=== PATIENT | male | born 1985 | race Caucasian/White ===

== ENCOUNTER 2022-07-15 22:24 | Inpatient (IN) ==
[2022-07-15 22:49] LABS: Basophils # (auto) 0.04 K/uL (0-0.2); Basophils % (auto) 0.2 %; Hemoglobin 14.9 g/dl (14.0-18.0); Immature Granulocytes # (auto) 0.08 K/uL (0.00-0.02); Immature Granulocytes % (auto) 0.5 %; Lymphocytes # (auto) 1.17 K/uL (1.2-3.4); Lymphocytes % (auto) 7.1 %; Mean Corpuscular Hemoglobin 30.8 pg (25.0-34.0); Mean Corpuscular Hgb Conc 34.7 g/dL (32.0-36.0); Mean Platelet Volume 9.2 fL (9.4-12.4); Monocytes % (auto) 6.1 %; Neutrophils # (auto) 14.09 K/uL (1.4-6.5); Neutrophils % (auto) 86.1 %; Platelet Count 248 K/uL (130-400); RDW Coefficient of Variation 12.9 % (11.5-14.5); RDW Standard Deviation 42.5 fL (36.4-46.3); Red Blood Count 4.83 M/uL (4.63-6.08); White Blood Count 16.38 K/ul (4.8-10.8)
[2022-07-15 23:09] LABS: Albumin Globulin Ratio 1.4 (0.9-2); Albumin Level 4.7 gm/dl (3.4-5.0); BUN Creatinine Ratio 12.3 (10-20); Bilirubin,Total 2.2 mg/dl (0.2-1.0); Creatinine Clr Calc Pharmacy 143.8 ml/min; Est GFR (African American) 130.7 ml/min; Est GFR (Non-African American) 112.7 ml/min; Globulin 3.4 gm/dl (2.5-4.0); Potassium 4.1 mmol/L (3.5-5.1); Total Protein 8.1 gm/dl (6.0-8.3)
[2022-07-15 23:24] LABS: Appearance Urine Turbid (Clear); Bacteria Urine Automated Negative (Negative); Blood Urine 2+ (Negative); Color Urine Orange; Glucose Urine UA Negative (Negative); Ketones Urine Trace (Negative); Leukocyte Esterase Urine Negative (Negative); Nitrite Urine Negative (Negative); Protein Urine 1+ (Negative); Specific Gravity Urine 1.035 (1.000-1.030); Urobilinogen Urine Negative (Negative); pH Urine 5.5 (4.5-7.5)
[2022-07-15 23:25] LABS: Bilirubin Urine 1+ (Negative)
[2022-07-15] MEDS ORDERED: ONDANSETRON INJ 2 MG/ML 2 ML VIAL IV STA (23:29)
[2022-07-15] MEDS ORDERED: HYDROmorphone INJ 1 MG/ML SYRINGE IV STA (23:29)
[2022-07-15] MEDS ORDERED: SODIUM CHLORIDE 0.9% 1000ML 1,000 ML IV ONE (23:30)
[2022-07-15 23:34] LABS: Amorphous Sediment Urine Present (None Prsent)
--- NOTE | 2022-07-15 23:35 | Emergency Department Note ---
Impression & Plan Acute cholecystitis Admit to the [facility]ist ED Provider Note NAME: SHELLY ANDRADE AGE: 36 SEX: M ARRIVES VIA: Walk-In INFORMANT: Patient ED PROVIDER(S): Shruthi Noble DO CHIEF COMPLAINT: Right upper quadrant pain PLAN: Disposition: Admit to the [facility] Condition: Stable MEDICAL DECISION MAKING: This is a 36-year-old male patient who presents to the emergency department with severe right upper quadrant abdominal pain after eating hash brown this morning. The patient had a similar episode 1 week ago after eating [employer]. Patient underwent right upper quadrant ultrasound and CT scan of the abdomen/pelvis which confirms acute cholecystitis. Patient was jaundiced on physical exam and had a total bilirubin of 2.2. I discussed the case with Dr. Barrera from general surgery. He recommended admission to hospitalist service with consultation to GI as well. Patient's pain and nausea was controlled with IV Dilaudid and Zofran. Triage Nursing notes reviewed and agree with them. Vital Signs: reviewed and remarkable for hypertension Differential diagnosis: Cholecystitis, pancreatitis, hepatitis, gastritis, ulcerative disease ER treatment provided: IV normal saline bolus IV Dilaudid IV Zofran Diagnostics interpreted by me: Laboratory studies: See below Imaging studies: As per stat rad Ultrasound gallbladder: The gallbladder demonstrates no wall thickening or per icholecystic fluid. No signs concerning for acute cholecystitis. There is some sludge within the gallbladder. There are some multiple small echogenic foci in of the gallbladder fundus which do not appear to move and may reflect small cholesterol polyps, follow-up ultrasound is recommended. There is a 3.6 cm simple appearing right renal cyst there is diffuse hepatic steatosis CT abdomen pelvis with contrast: Acute cholecystitis. Distended gallbladder with pericholecystic edema. No radiopaque stones. No intrahepatic or extrahepatic biliary ductal dilatation. 6 mm rounded visual lung nodule on the right. These nodules are typically benign. 3 cm simple right renal cyst HPI: 36/M arrives for evaluation of right upper quadrant pain. Patient explains that he ate a hash brown this morning and developed severe right upper quadrant abdominal pain, nausea and vomiting. He explains that his abdomen feels rockhard. A very similar episode happened last week after eating [employer]aco [employer]. Thing that would help was a hot shower and falling asleep. Patient states that his stomach has not felt right over the past 2 months. He thought that he may have a gluten allergy. ROS: See above HPI for pertinent positives & negatives. A total of 10 systems reviewed and were otherwise negative. PAST MEDICAL HISTORY:See Below PAST SURGICAL HISTORY:See Below FAMILY HISTORY:See Below SOCIAL HISTORY:See Below HOME MEDICATIONS:See list ALLERGIES:None VITALS:See Below PHYSICAL EXAMINATION: HEENT: Head - normocephalic and atraumatic. Pupils are equal, round, and reactive to light. Extraocular eye muscles are intact, and sclera are anicteric. Nose - moist nasal mucosa without discharge. Mouth - moist buccal mucosa. Oropharynx is nonerythematous and there is no tonsillar exudate or edema noted. Neck: Supple; no cervical lymphadenopathy or nuchal rigidity Heart: Regular rate and rhythm. There is a normal S1 and S2 with no murmurs, clicks, or gallops appreciated. Lungs: Clear to auscultation bilaterally with no wheezes, rales, or rhonchi. Abdomen: Distended and exquisitely tender to palpation in the right upper quadrant of the abdomen. The patient has guarding. There is no rebound or rigidity. There are no palpable pulsatile masses or hepatosplenomegaly. Extremities: No evidence of cyanosis, clubbing, or edema. There are easily palpable peripheral pulses. Skin: Jaundice, pale, warm and dry with good turgor and no rashes. ED COURSE: Times/Reassessments: 2320: The patient was evaluated in room A-3. A complete history and physical was performed. An IV lock was initiated and labs are drawn as above. Patient was bolused with a liter of normal saline solution. He was given a milligram of IV Dilaudid and 4 mg of IV Zofran. The patient will go for ultrasound of the right upper quadrant of the abdomen. Upon returning from radiology, the patient complained of persistent nausea and was given a second dose of IV Zofran. He will go for CT scan of the abdomen/pelvis. He was bolused with IV normal saline solution and kept NPO. Upon returning from CT scan, the patient describes the pain is returning and was given a normal dose of IV Dilaudid. Shruthi Noble DO Past Med/Surg History Medical History (Updated 07/16/22 @ 07:11 by Shruthi Noble DO) No chronic diseases present Surgical History No significant past surgical history Social History Smoking Status: Never smoker Preferred Language: Chadian Feels Safe at Home: Yes Allergies Allergies Allergy/AdvReac Type Severity Reaction Status Date / Time CUT GRASS Allergy Intermediate CONGESTION Uncoded 07/15/22 23:22 Home Meds Home Medications Medication Instructions Recorded Confirmed multivitamin 1 tab PO DAILY 04/06/20 07/15/22 fexofenadine 60 mg-pseudoephedrine 1 tab PO DAILY 07/15/22 07/15/22 ER 120 mg tablet,ext.release,12 hr (Nelia-D 12 Hour) potassium gluconate 595 mg (99 mg) 0 mg PO DAILY 07/15/22 07/15/22 tablet Results & Data (ED) Vital Signs Vital Signs - 24 hr 07/15/22 22:26 07/15/22 22:24 07/15/22 22:40 Temperature 36.1 C L Temperature Source Temporal Artery Scan Pulse Rate 70 65 Pulse Rate [Left Finger] 65 Pulse Rhythm Regular Pulse Strength Normal Respiratory Rate 18 16 14 Respiratory Effort / Characteristics Non-Labored Spontaneous Non-Labored Spontaneous Respiratory Depth Normal Normal Respiratory Pattern Regular Blood Pressure 154/67 H Blood Pressure [Right Arm] Blood Pressure Mean 96 Blood Pressure Mean [Right Arm] Blood Pressure Position Sitting Blood Pressure Position [Right Arm] Pulse Oximetry 99 100 100 Oxygen Delivery Method Room Air Room Air Room Air Sepsis Recent Fever Within 48 Hours No Sepsis New/Unexplained Change in Mental Status N/A Sepsis Action Taken by Nursing No Action Required 07/16/22 01:07 07/16/22 03:21 Temperature Temperature Source Pulse Rate Pulse Rate [Left Finger] 65 71 Pulse Rhythm Pulse Strength Respiratory Rate 18 18 Respiratory Effort / Characteristics Non-Labored Spontaneous Non-Labored Spontaneous Respiratory Depth Normal Normal Respiratory Pattern Blood Pressure Blood Pressure [Right Arm] 145/98 H 152/92 H Blood Pressure Mean Blood Pressure Mean [Right Arm] 113 112 Blood Pressure Position Blood Pressure Position [Right Arm] Sitting Pulse Oximetry 100 97 Oxygen Delivery Method Room Air Room Air Sepsis Recent Fever Within 48 Hours Sepsis New/Unexplained Change in Mental Status Sepsis Action Taken by Nursing Laboratory Data Result diagrams: 07/15/22 Unknown 07/15/22 Unknown Lab Results 07/15/22 07/15/2207/15/22 Range/Units 23:02 Unknown Unknown WBC 16.38 H (4.8-10.8) K/ul RBC 4.83 (4.63-6.08) M/uL Hgb 14.9 (14.0-18.0) g/dl Hct 43.0 (40.1-51.0) % MCV 89.0 (80.0-100.0) fL MCH 30.8 (25.0-34.0) pg MCHC 34.7 (32.0-36.0) g/dL RDW Std Deviation 42.5 (36.4-46.3) fL RDW Coeff of Maggy 12.9 (11.5-14.5) % Plt Count 248 (130-400) K/uL MPV 9.2 L (9.4-12.4) fL Immature Gran % (Auto) 0.5 % Neut % (Auto) 86.1 % Lymph % (Auto) 7.1 % [place] % (Auto) 6.1 % Eos % (Auto) 0.0 % Baso % (Auto) 0.2 % Neut # (Auto) 14.09 H (1.4-6.5) K/uL Lymph # (Auto) 1.17 L (1.2-3.4) K/uL [place] # (Auto) 1.00 H (0.24-0.82) K/uL Eos # (Auto) 0.00 (0-0.50) K/uL Baso # (Auto) 0.04 (0-0.2) K/uL Immature Gran # (Auto) 0.08 H (0.00-0.02) K/uL Sodium 139 (136-145) mmol/L Potassium 4.1 (3.5-5.1) mmol/L Chloride 103 (98-107) mmol/L Carbon Dioxide 27 (21-32) mmol/L Anion Gap 9 (3-11) BUN 10 (6-23) mg/dl Creatinine 0.81 (0.6-1.4) mg/dl Est Cr Clr Drug Dosing 143.8 ml/min Est GFR ( Amer) 130.7 ml/min Est GFR (Non-Af Amer) 112.7 ml/min BUN/Creatinine Ratio 12.3 (10-20) Glucose 134 H (70-99(Fasting)) mg/dl Calcium 10.0 (8.5-10.1) mg/dl Total Bilirubin 2.2 H (0.2-1.0) mg/dl AST 17 (13-39) U/L ALT 30 (7-52) U/L Alkaline Phosphatase 54 (34-104) U/L Total Protein 8.1 (6.0-8.3) gm/dl Albumin 4.7 (3.4-5.0) gm/dl Globulin 3.4 (2.5-4.0) gm/dl Albumin/Globulin Ratio 1.4 (0.9-2) Lipase 8 L (11-82) U/L Urine Color Taylor Urine Appearance Turbid A (Clear) Urine pH 5.5 (4.5-7.5) Ur Specific [place] 1.035 H (1.000-1.030) Urine Protein 1+ H (Negative) Urine Glucose (UA) Negative (Negative) Urine Ketones Trace H (Negative) Urine Blood 2+ H (Negative) Urine Nitrite Negative (Negative) Urine Bilirubin 1+ H (Negative) Urine Urobilinogen Negative (Negative) Ur Leukocyte Esterase Negative (Negative) Urine WBC (Auto) 1-5 (0-5) /hpf Urine RBC (Auto) 10-30 H (0-4) /hpf U Hyaline Cast (Auto) 1-5 (0-5) /lpf U Epithel Cells (Auto) 5-10 H (0-5) /lpf Urine Bacteria (Auto) Negative (Negative) Urine Crystals Not Reportable Amorphous Sediment Present A (None Prsent) SARS-CoV-2, RNA, NAAT (NEGATIVE) 07/16/22 Range/Units 03:54 WBC (4.8-10.8) K/ul RBC (4.63-6.08) M/uL Hgb (14.0-18.0) g/dl Hct (40.1-51.0) % MCV (80.0-100.0) fL MCH (25.0-34.0) pg MCHC (32.0-36.0) g/dL RDW Std Deviation (36.4-46.3) fL RDW Coeff of Maggy (11.5-14.5) % Plt Count (130-400) K/uL MPV (9.4-12.4) fL Immature Gran % (Auto) % Neut % (Auto) % Lymph % (Auto) % [place] % (Auto) % Eos % (Auto) % Baso % (Auto) % Neut # (Auto) (1.4-6.5) K/uL Lymph # (Auto) (1.2-3.4) K/uL [place] # (Auto) (0.24-0.82) K/uL Eos # (Auto) (0-0.50) K/uL Baso # (Auto) (0-0.2) K/uL Immature Gran # (Auto) (0.00-0.02) K/uL Sodium (136-145) mmol/L Potassium (3.5-5.1) mmol/L Chloride (98-107) mmol/L Carbon Dioxide (21-32) mmol/L Anion Gap (3-11) BUN (6-23) mg/dl Creatinine (0.6-1.4) mg/dl Est Cr Clr Drug Dosing ml/min Est GFR ( Amer) ml/min Est GFR (Non-Af Amer) ml/min BUN/Creatinine Ratio (10-20) Glucose (70-99(Fasting)) mg/dl Calcium (8.5-10.1) mg/dl Total Bilirubin (0.2-1.0) mg/dl AST (13-39) U/L ALT (7-52) U/L Alkaline Phosphatase (34-104) U/L Total Protein (6.0-8.3) gm/dl Albumin (3.4-5.0) gm/dl Globulin (2.5-4.0) gm/dl Albumin/Globulin Ratio (0.9-2) Lipase (11-82) U/L Urine Color Urine Appearance (Clear) Urine pH (4.5-7.5) Ur Specific [place] (1.000-1.030) Urine Protein (Negative) Urine Glucose (UA) (Negative) Urine Ketones (Negative) Urine Blood (Negative) Urine Nitrite (Negative) Urine Bilirubin (Negative) Urine Urobilinogen (Negative) Ur Leukocyte Esterase (Negative) Urine WBC (Auto) (0-5) /hpf Urine RBC (Auto) (0-4) /hpf U Hyaline Cast (Auto) (0-5) /lpf U Epithel Cells (Auto) (0-5) /lpf Urine Bacteria (Auto) (Negative) Urine Crystals Amorphous Sediment (None Prsent) SARS-CoV-2, RNA, NAAT NEGATIVE (NEGATIVE) Administered Medications Discontinued Medications Bisacodyl (Bisacodyl 10 Mg Supp) 10 mg RI NOW STA Stop: 07/16/22 04:40 Last Admin: 07/16/22 04:52 Dose: 10 mg Documented By: FRANKLIN Hydromorphone HCl (Hydromorphone Inj 1 Mg/Ml Syringe) 1 mg IV NOW STA Stop: 07/15/22 23:30 Last Admin: 07/15/22 23:36 Dose: 1 mg Documented By: CELINE Hydromorphone HCl (Hydromorphone Inj 1 Mg/Ml Syringe) 1 mg IV NOW STA Stop: 07/16/22 02:12 Last Admin: 07/16/22 02:14 Dose: 1 mg Documented By: CELINE Hydromorphone HCl (Hydromorphone Inj 0.5 Mg/0.5 Ml Syr) 0.5 mg IV NOW STA Stop: 07/16/22 04:40 Last Admin: 07/16/22 04:52 Dose: 0.5 mg Documented By: FRANKLIN Sodium Chloride (Nss 1000ml) 1,000 mls @ 999 mls/hr IV .Q1H1M ONE Stop: 07/16/22 00:30 Last Infusion: 07/16/22 00:48 Dose: 0 mls/hr Documented By: Admin: 07/15/22 23:36 Dose: 999 mls/hr Documented By: CELINE Ioversol (Optiray 350 100ml) 100 ml IV ONCE ONE Stop: 07/16/22 01:38 Last Admin: 07/16/22 01:38 Dose: 85 ml Documented By: JOSE MIGUEL Ondansetron HCl (Ondansetron Inj 2 Mg/Ml 2 Ml Vial) 4 mg IV NOW STA Stop: 07/15/22 23:30 Last Admin: 07/15/22 23:36 Dose: 4 mg Documented By: CELINE Ondansetron HCl (Ondansetron Inj 2 Mg/Ml 2 Ml Vial) 4 mg IV NOW STA Stop: 07/16/22 01:10 Last Admin: 07/16/22 01:16 Dose: 4 mg Documented By: CELINE Senna/Docusate Sodium (Docusate Sodium/Senna 50/8.6mg Tab) 2 tab PO NOW STA Stop: 07/16/22 04:40 Last Admin: 07/16/22 04:52 Dose: 2 tab Documented By: LRS Discharge Plan Visit Data Chief Complaint: Abdominal Pain Stated Complaint: VOMITING, STOMACH HARD, GLUTEN ALLERGY ED Provider: Shruthi Noble Discharge Problem: Acute cholecystitis Patient Disposition: Admitted As Inpatient
[2022-07-16] MEDS ORDERED: ONDANSETRON INJ 2 MG/ML 2 ML VIAL IV STA (01:09)
[2022-07-16] MEDS ORDERED: OPTIRAY 350 100ml IV ONE (01:37)
[2022-07-16] MEDS ORDERED: HYDROmorphone INJ 1 MG/ML SYRINGE IV STA (02:11)
[2022-07-16] MEDS ORDERED: DOCUSATE SODIUM/SENNA 50/8.6MG TAB PO STA (04:39)
[2022-07-16] MEDS ORDERED: bisacodyL 10 MG SUPP PR STA (04:39)
[2022-07-16] MEDS ORDERED: HYDROmorphone INJ 0.5 MG/0.5 ML SYR IV STA (04:39)
[2022-07-16] MEDS ORDERED: PIPERACILLIN/TAZOBACTAM 3.375 GM in DEXTROSE 5% 100 ML IV SCH (07:24)
[2022-07-16] MEDS ORDERED: POLYETHYLENE (MIRALAX) 17 GM PACK PO PRN (07:24)
--- NOTE | 2022-07-16 07:31 | Ultrasound Report ---
ULTRASOUND RIGHT UPPER QUADRANT ABDOMEN CLINICAL HISTORY: Right upper quadrant abdominal pain. COMPARISON STUDY: No priors. TECHNIQUE: Real-time, grayscale, and color flow sonography of the right upper quadrant of the abdomen was performed. Images are reviewed in the transverse and longitudinal planes. FINDINGS: Liver: The liver is enlarged and demonstrates heterogeneously increased echotexture indicating steato sis. There is no intrahepatic biliary ductal dilatation. The main portal vein is patent. Gallbladder: The gallbladder is distended and appears mildly thick walled measuring up to 4 mm. Calci fications in the fundal region may represent gallstones versus polyps. No pericholecystic fluid is se en. A sonographic Walden's sign is reportedly absent. The common bile duct measures up to 0.3 cm in d iameter. Pancreas: Visualized portions of the pancreatic head and body are normal in appearance. Right kidney: Survey images of the right kidney demonstrate normal size and echotexture. There is no hydronephrosis. A 3.6 cm cyst is incidentally noted. Ascites: None. IMPRESSION: 1. The gallbladder is distended an the wall appears mildly thickened. Calcifications within the manjeet l region are nonmobile and may represent gallstones versus polyps. There is no pericholecystic fluid and a sonographic Walden's sign is reportedly absent. There is no definitive sonographic evidence for acute cholecystitis at this time. If there is strong clinical/laboratory concern for acute cholecyst itis a nuclear hepatobiliary scan should be obtained. 2. There is no intra or extrahepatic biliary ductal dilatation. 3. Hepatomegaly and hepatic steatosis. ACT 112: Negative or not required by law. Electronically signed by: Jerel Ovalle M.D. 07/16/2022 7:29 AM
[2022-07-16] MEDS ORDERED: PIPERACILLIN/TAZOBACTAM 3.375 GM in DEXTROSE 5% 100 ML IV ONE (07:45)
[2022-07-16] MEDS ORDERED: PIPERACILLIN/TAZOBACTAM 4.5 GM/120 ML BAG IV ONE (07:45)
[2022-07-16] MEDS: D5W AND 1/2NSS 1,000 ML IV SCH ×2 (07:46→16:56)
[2022-07-16] MEDS: ACETAMINOPHEN 325 MG TAB PO PRN (07:47)
[2022-07-16] MEDS: ONDANSETRON INJ 2 MG/ML 2 ML VIAL IV PRN ×2 (07:47→18:20)
[2022-07-16 07:49] LABS: Basophils # (auto) 0.05 K/uL (0-0.2); Basophils % (auto) 0.3 %; Hematocrit (blood only) 43.2 % (40.1-51.0); Hemoglobin 14.5 g/dl (14.0-18.0); Immature Granulocytes # (auto) 0.08 K/uL (0.00-0.02); Immature Granulocytes % (auto) 0.4 %; Lymphocytes # (auto) 0.85 K/uL (1.2-3.4); Lymphocytes % (auto) 4.6 %; Mean Corpuscular Hemoglobin 30.6 pg (25.0-34.0); Mean Corpuscular Hgb Conc 33.6 g/dL (32.0-36.0); Mean Corpuscular Volume 91.1 fL (80.0-100.0); Monocytes # (auto) 1.61 K/uL (0.24-0.82); Monocytes % (auto) 8.7 %; Neutrophils # (auto) 15.94 K/uL (1.4-6.5); Platelet Count 229 K/uL (130-400); RDW Standard Deviation 43.3 fL (36.4-46.3); Red Blood Count 4.74 M/uL (4.63-6.08); White Blood Count 18.53 K/ul (4.8-10.8)
[2022-07-16 08:16] LABS: Albumin Level 4.4 gm/dl (3.4-5.0); BUN Creatinine Ratio 9.5 (10-20); Bilirubin Direct 0.6 mg/dl (0-0.2); Bilirubin,Total 2.8 mg/dl (0.2-1.0); Calcium 9.6 mg/dl (8.5-10.1); Creatinine Clr Calc Pharmacy 157.4 ml/min; Est GFR (African American) 135.6 ml/min; Magnesium 1.7 mg/dl (1.7-2.4); Total Protein 7.6 gm/dl (6.0-8.3)
--- NOTE | 2022-07-16 08:19 | History and Physical Report ---
DATE OF ADMISSION: 07/16/2022. CHIEF COMPLAINT: Abdominal pain. HISTORY OF PRESENT ILLNESS: This is a 36-year-old male with past medical history significant for chronic rhinitis, history of right parotid lobe small mass, too small for biopsy and is following with ENT, presents with abdominal pain since yesterday morning. Yesterday morning, he ate hash brown, since then he has right upper quadrant abdominal pain, severe in nature, has significant nausea, vomiting, which is not improving, so came here and CAT scan showing cholecystitis. Currently requesting for pain medication and also says he did not move his bowel for the last several days and is asking for stool softeners. Denies any fever or chills. Normal bladder movements. No headache, no blurred visions, no earache, no runny nose, no sore throat, no cough, no chest pain. Sometimes, he gets short of breath with the pain. Currently, resting comfortably and hemodynamically stable. ALLERGIES: CUT GRASS. PAST MEDICAL HISTORY: As mentioned above. PAST SURGICAL HISTORY: None. MEDICATIONS: Takes fexofenadine. FAMILY HISTORY: No significant family history. SOCIAL HISTORY: , no smoking. No alcohol. REVIEW OF SYSTEMS: As per HPI. Rest of review of systems is negative. PHYSICAL EXAMINATION: GENERAL: The patient is of moderate build, not in acute distress. VITAL SIGNS: Temperature 36.1, pulse 71, respiratory rate 18, blood pressure 152/92, oxygen 97% on room air. HEENT: Pupils equal, round and reactive to light. Oral mucosa dry. NECK: No JVD or neck masses. CARDIOVASCULAR: S1 and S2 heard. Regular rate and rhythm. No murmur, no gallop. RESPIRATORY SYSTEM: Normal AP diameter. No accessory muscle use. No wheezing, no crackles. ABDOMEN: Soft, bowel sounds present. Tenderness in the right upper quadrant region. Mild guarding, no rigidity, no distention. CENTRAL NERVOUS SYSTEM: Cranial nerves II-XII grossly intact, nonfocal. EXTREMITIES: No edema, no erythema. LABORATORY DATA: WBC 16, hemoglobin 14.9, hematocrit 43, platelets 248. Sodium 139, potassium 4.1, chloride 103, bicarbonate 27, BUN 10, creatinine 0.8, serum glucose 134, calcium 10, total bilirubin 2.2, AST 17, ALT 30, alkaline phosphatase 54. Lipase 8. Urinalysis, +1 protein, trace ketones, +2 blood. SARS-CoV-2 rapid test negative. IMAGING: CT of abdomen and pelvis with contrast shows acute cholecystitis, distended gallbladder with pericholecystic edema. No radiopaque stones, no intrahepatic or extrahepatic biliary ductal dilatation. Gallbladder ultrasound; gallbladder no wall thickening or pericholecystic fluid. No signs consistent with acute cholecystitis. There is some small sludge within the gallbladder. There are multiple small echogenic foci near the gallbladder fundus, which do not appear to move and may reflect a small cholesterol polyps. Followup ultrasound is recommended. A 3.6 cm simple-appearing right renal cyst. ASSESSMENT AND PLAN: This 36-year-old male presents with abdominal pain and found to have cholecystitis. 1. Abdominal pain, cholecystitis, mild elevation of bilirubin at 2.2: Emergency Room spoke with the surgeon poured concrete wall technician and recommended gastrointestinal evaluation as bilirubin is elevated. We will empirically start on IV Zosyn. Follow the cultures, n.p.o., IV fluids, IV antiemetics, IV pain medication p.r.n. Consult gastrointestinal and surgery for further recommendations.Follow labs. Followup final reports of imaging studies. 2. Deep venous thrombosis prophylaxis: Sequential compression devices. DISPOSITION: Closely monitor in the medical floor. PT/OT prior to discharge. Social service to help with discharge planning. Job ID: [id number] [facility]OSPITALAmisha
--- NOTE | 2022-07-16 09:14 | CT Scan Report ---
CT abd pelvis IV con only CLINICAL HISTORY: eval RUQ pain TECHNIQUE: Helical axial images of the abdomen and pelvis were obtained and displayed. Automated dose lowering techniques and/or adjustment according to patient size were utilized for this exam. This e xam was performed with intravenous contrast. CT DOSE: 593.80 mGy.cm COMPARISON: Comparison is made to right upper quadrant ultrasound 07/16/2022 FINDINGS: Lower chest: Exam is limited by patient motion. Atelectasis is seen. Liver: Unremarkable. No focal lesions are seen. Gallbladder and biliary tree: The gallbladder wall thickening and pericholecystic fluid is seen. The gallbladder wall measures up to 4 mm. No intra- or extrahepatic biliary ductal dilation. Pancreas: Unremarkable, no focal lesions. Spleen: Unremarkable. Adrenals: Unremarkable. Kidneys and ureters: A right renal cyst is seen. Bladder: Unremarkable. Reproductive organs: Unremarkable. Bowel: Unremarkable appearance of the bowel. The appendix is normal. Lymph nodes Retroperitoneal: Unremarkable. Pelvic: Unremarkable. Mesenteric: Unremarkable. Peritoneum: A small amount of free fluid is seen in the lower abdomen. Vessels: Unremarkable. Abdominal wall: Unremarkable. Bones: Unremarkable. IMPRESSION: There is gallbladder wall thickening and pericholecystic fluid stranding. Findings are suggestive of acute cholecystitis, however correlation with gallbladder ultrasound is recommended. If further evalu ation is desired, a nuclear medicine HIDA scan can be performed. ACT 112: Negative or not required by law. Electronically signed by: Tawanda Long M.D. 07/16/2022 9:11 AM
[2022-07-16] MEDS: HYDROmorphone INJ 0.5 MG/0.5 ML SYR IV PRN ×4 (10:53→21:00)
--- NOTE | 2022-07-16 10:54 | Surgery Consultation ---
Date of Consultation July 16, 2022 Assessment & Plan (1) Acute cholecystitis: IVF and IV abx GI does not recommend ERCP or MRCP Lap jana with IOC in AM Present on Admission?: Yes History of Present Illness Attending Physician: Anders Fisher MD History of Present Illness This is a 36-year-old male with RUQ abdominal pain since yesterday morning related to food intake. Her has associated nausea and vomiting, without fevers. An outside CT scan shows likely cholecystitis. He has had constipation without any urinary symptoms. Allergies Allergy/AdvReac Type Severity Reaction Status Date / Time CUT GRASS Allergy Intermediate CONGESTION Uncoded 07/15/22 23:22 Home Medications Medication Instructions Recorded Confirmed Type multivitamin 1 tab PO DAILY 04/06/20 07/15/22 History fexofenadine 60 mg-pseudoephedrine 1 tab PO DAILY 07/15/22 07/15/22 History ER 120 mg tablet,ext.release,12 hr (Nelia-D 12 Hour) potassium gluconate 595 mg (99 mg) 0 mg PO DAILY 07/15/22 07/15/22 History tablet Patient History Medical History (Updated 07/16/22 @ 07:11 by Shruthi Noble DO) No chronic diseases present Surgical History No significant past surgical history Social History Smoking Status: Never smoker Preferred Language: Georgian Feels Safe at Home: Yes Review of Systems Constitutional: + anorexia; no fever, no chills and no weight loss Eyes: no problem reported Ear, Nose, Mouth, Throat: no problem reported Respiratory: no cough, no chest congestion, no dyspnea and no dyspnea on exertion Cardiovascular: no chest pain, no chest pain at rest, no chest pain with activity, no radiating jaw, neck or arm pain and no dyspnea Gastrointestinal: + abdominal pain, + nausea, + vomiting, + change in bowel habits and + constipation Genitourinary: no dysuria, no difficulty urinating, no urinary hesitancy or no urinary incontinence Musculoskeletal: + back pain; no neck pain and no joint pain Integumentary: no rash and no lesions Neurologic: no localized weakness and no generalized weakness Psychiatric: no behavioral changes Endocrine: no polyphagia and no polyuria Hematologic / Lymphatic: no easy bleeding and no easy bruising Allergy / Immunological: no GI upset with certain foods Physical Exam Constitutional: WD/WN, vitals as above Eyes: PERRL, conjunctivae normal, anicteric sclerae ENMT: external ear and nose normal, oropharynx normal Neck: trachea midline Respiratory: normal respiratory effort, lungs clear to auscultation Cardiovascular: RRR, no murmur, no edema Gastrointestinal (Abdomen): Inspection/Auscultation: abdomen normal to inspection and normal bowel sounds; abdomen not distended and no abdominal surgical scar Percussion/Palpation: + abdomen tender and abdomen soft; no guarding, abdomen not rigid and no hernia Musculoskeletal: Head/Neck/Chest: normocephalic and head atraumatic Skin: no rashes, warm and dry Psychiatric: Orientation: alert and oriented x 3 Lymphatic: no lymphadenopathy Results & Data ([facility]) Vital Signs (Past 12 Hours) Vital Signs Pulse Resp BP Pulse Ox O2 Del Method 07/16/22 07:00 86 18 144/94 H 97 Room Air 07/16/22 05:00 82 18 158/97 H 98 Room Air 07/16/22 03:21 71 18 152/92 H 97 Room Air 07/16/22 01:07 65 18 145/98 H 100 Room Air Diagnostic Findings LTRASOUND RIGHT UPPER QUADRANT ABDOMEN CLINICAL HISTORY: Right upper quadrant abdominal pain. COMPARISON STUDY: No priors. TECHNIQUE: Real-time, grayscale, and color flow sonography of the right upper quadrant of the abdomen was performed. Images are reviewed in the transverse and longitudinal planes. FINDINGS: Liver: The liver is enlarged and demonstrates heterogeneously increased echotexture indicating steatosis. There is no intrahepatic biliary ductal dilatation. The main portal vein is patent. Gallbladder: The gallbladder is distended and appears mildly thick walled measuring up to 4 mm. Calcifications in the fundal region may represent gallstones versus polyps. No pericholecystic fluid is seen. A sonographic Walden's sign is reportedly absent. The common bile duct measures up to 0.3 cm in diameter. Pancreas: Visualized portions of the pancreatic head and body are normal in appearance. Right kidney: Survey images of the right kidney demonstrate normal size and echotexture. There is no hydronephrosis. A 3.6 cm cyst is incidentally noted. Ascites: None. IMPRESSION: 1. The gallbladder is distended an the wall appears mildly thickened. Calcifications within the fundal region are nonmobile and may represent gallstones versus polyps. There is no pericholecystic fluid and a sonographic Walden's sign is reportedly absent. There is no definitive sonographic evidence for acute cholecystitis at this time. If there is strong clinical/laboratory concern for acute cholecystitis a nuclear hepatobiliary scan should be obtained. 2. There is no intra or extrahepatic biliary ductal dilatation. 3. Hepatomegaly and hepatic steatosis.
[2022-07-16] MEDS ORDERED: ceFAZolin 2000MG 2,000 MG/15 ML SYR IV ONE (10:59)
--- NOTE | 2022-07-16 11:29 | Gastrointestinal Consultation ---
Date of Consultation July 16, 2022 Assessment & Plan (1) Acute cholecystitis: Plan Patient is a 36 years old male who presented with right upper quadrant abdominal pain, nausea and vomiting symptoms, upon evaluation found to have abnormal LFTs, specifically elevated total bilirubin and abdominal imaging studies with ultrasound and CT concerning for possible cholecystitis but without signs of biliary ductal dilatation. - IV antibiotic coverage - NPO - Surgery following, scheduling pt for cholecystectomy on 07/17. Recommend intraop cholangiogram during surgery - Trend LFTs - GI to sign off; pls recall prn Supervising Physician Co-Signing Physician Notes Patient was seen and examined with JELENA Singh on 07/16. Her note reflects our findings and plan., History of Present Illness Reason for Consultation: Cholecystitis, elevated total bilirubin Requesting Physician: Dr. Anders Fisher Attending Physician: Dr. Yvonne Evans History of Present Illness Patient is a 36 years old male with nonsignificant past medical history who presented last night with complaints of right upper quadrant abdominal pain, nausea and vomiting which started yesterday morning. Denies any fevers, chills, jaundice or changes in his bowel habits. Upon evaluation does have leukocytosis, abnormal LFTs with total bilirubin of 2.8, AST 17, ALT 26, alkaline phosphatase 51, lipase 8. Abdominal imaging studies with CT and ultrasound showed signs of hepatomegaly, hepatic steatosis, gallbladder wall thickening with fluid surrounding, calcifications within the gallbladder, possibly stones or polyps. No signs of biliary ductal dilatation noted. Allergies Allergy/AdvReac Type Severity Reaction Status Date / Time CUT GRASS Allergy Intermediate CONGESTION Uncoded 07/15/22 23:22 Home Medications Medication Instructions Recorded Confirmed Type multivitamin 1 tab PO DAILY 04/06/20 07/15/22 History fexofenadine 60 mg-pseudoephedrine 1 tab PO DAILY 07/15/22 07/15/22 History ER 120 mg tablet,ext.release,12 hr (Nelia-D 12 Hour) potassium gluconate 595 mg (99 mg) 0 mg PO DAILY 07/15/22 07/15/22 History tablet oxycodone-acetaminophen 5 mg-325 1 tab PO Q6H PRN pain #5 tabs 07/19/22 Rx mg tablet Patient History Medical History (Updated 07/17/22 @ 08:46 by Tarsha Breen DO) H/O Abbott's palsy Parotid mass right, 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 Rhinitis, chronic TMJ dysfunction right, poor mouth opening Surgical History (Updated 07/17/22 @ 08:46 by Tarsha Breen DO) History of tonsillectomy Social History Smoking Status: Never smoker Hx Alcohol Use: No Hx Substance Use: No Preferred Language: Moroccan Communication Ability: Effective Air Launch Weapons Technician Required: No Beliefs That Will Affect Care: None marital status: Current Living Situation: Spouse and Family How many Children do You have: 0 Feels Safe at Home: Yes Assistive Devices: None Assistive Devices Comment: qq Review of Systems Review of Systems: All systems reviewed & are unremarkable except as noted in HPI & below Physical Exam Constitutional: WD/WN, vitals as above well groomed, cooperative and comfortable Eyes: PERRL, conjunctivae normal, anicteric sclerae ENMT: external ear and nose normal, oropharynx normal Respiratory: normal respiratory effort, lungs clear to auscultation Cardiovascular: RRR, no murmur, no edema Gastrointestinal (Abdomen): RUQ TTP, soft, hypoactive BS Skin: no rashes, warm and dry no jaundice Psychiatric: A+Ox3, euthymic affect Lymphatic: no lymphedema Results & Data ([facility]) Vital Signs (Past 12 Hours) Vital Signs Pulse Resp BP Pulse Ox O2 Del Method 07/16/22 07:00 86 18 144/94 H 97 Room Air 07/16/22 05:00 82 18 158/97 H 98 Room Air 07/16/22 03:21 71 18 152/92 H 97 Room Air 07/16/22 01:07 65 18 145/98 H 100 Room Air
[2022-07-16] MEDS: PIPERACILLIN/TAZOBACTAM 3.375 GM in DEXTROSE 5% 100 ML IV SCH ×2 (14:09→20:55)
--- NOTE | 2022-07-16 15:51 | Communication Note ---
Date of Service: July 16, 2022 36-year-old male was admitted early this morning with acute cholecystitis and remains hemodynamically stable. Will have laparoscopic cholecystectomy kamran orrow. Full progress note will be done tomorrow. DR Shiraz Fisher
--- NOTE | 2022-07-16 16:32 | Anesthesiology Consultation ---
Date of Service July 16, 2022 Assessment & Plan Chart Review Chart Review: Acceptable Risk for Surgery Consults Requested none ASA ASA2 Proposed Anesthesia Anesthesia Type: General Risk / Benefits Reviewed With: PT / POA / Parent / Guardian, Accepts Plan and Informed Consent Obtained Additional Comments: possible difficult airway, glidescope and FOB in room History Surgery Operation Date: 07/17/22 08:50 Proposed Procedures p Laparoscopic Cholecystectomy with Cholangiogram - Ashish Huang MD Height/Weight Height: 6 ft 2 in Weight: 97.1 kg Allergies Allergy/AdvReac Type Severity Reaction Status Date / Time CUT GRASS Allergy Intermediate CONGESTION Uncoded 07/15/22 23:22 Medications Home Medications Medication Instructions Recorded Confirmed Last Taken multivitamin 1 tab PO DAILY 04/06/20 07/15/22 07/15/22 fexofenadine 60 mg-pseudoephedrine 1 tab PO DAILY 07/15/22 07/15/22 07/15/22 ER 120 mg tablet,ext.release,12 hr (Nelia-D 12 Hour) potassium gluconate 595 mg (99 mg) 0 mg PO DAILY 07/15/22 07/15/22 07/15/22 tablet Active Medications Generic Name Dose Route Start Last Admin Trade Name Freq PRN Reason Stop Dose Admin Acetaminophen 650 mg 07/16/22 07:24 07/17/22 01:43 Acetaminophen 325 Mg Tab PO 08/15/22 07:23 650 mg Q4H PRN Administration pain/fever Hydromorphone HCl 0.5 mg 07/16/22 07:24 07/17/22 01:39 Hydromorphone Inj 0.5 Mg/0.5 Ml Syr IV 07/30/22 07:23 0.5 mg Q3H PRN Administration Pain Dextrose/Sodium Chloride 1,000 mls @ 125 mls/hr 07/16/22 07:24 07/17/22 00:52 D5w And 1/2nss IV 08/15/22 07:23 125 mls/hr .Q8H WILLOW Administration Piperacillin Sod/Tazobactam 115 mls @ 28.75 mls/hr 07/16/22 13:00 07/17/22 04:02 Sod 3.375 gm/ Dextrose IV 07/26/22 12:59 28.8 mls/hr Q8H WILLOW Administration Protocol Ondansetron HCl 4 mg 07/16/22 07:24 07/17/22 08:01 Ondansetron Inj 2 Mg/Ml 2 Ml Vial IV 08/15/22 07:23 4 mg Q6H PRN Administration Nausea NPO Date Last Intake of Fluids: 07/16/22 Time Last Intake of Fluids: 20:00 Date Last Intake of Solids: 07/14/22 Time Last Intake of Solids: 20:00 Past Medical History Medical History (Updated 07/17/22 @ 08:46 by Tarsha Breen DO) H/O Abbott's palsy Parotid mass right, 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 Rhinitis, chronic TMJ dysfunction right, poor mouth opening Exercise / Class Metabolic Activity II 4-5 Yardwork/Stairs/Walk up hill Past Surgical History Surgical History (Updated 07/17/22 @ 08:46 by Tarsha Breen DO) History of tonsillectomy Past Anesthesia History No Hx of Anesthesia Complications and No Family Hx of Anesthesia Complications History of PONV No Hx of PONV and No Hx of Motion Sickness Social History Smoking Status: Never smoker Hx Alcohol Use: No Hx Substance Use: No Physical Exam Vital Signs Last Vital Signs Temp 37.2 C 07/17/22 08:00 Pulse 103 H 07/17/22 08:00 Resp 18 07/17/22 08:00 BP 141/91 H 07/17/22 08:00 Pulse Ox 97 07/17/22 08:00 O2 Del Method 07/17/22 08:00 ENMT Mouth: + TMJ clicking, + restricted motion of mouth and + small oral opening; no TMJ abnormality Thyromental Distance: > or= 3.5 Finger Breadths Mallampati Class: IV unable to fully open mouth secondary to right TMJ dysfunction Neck normal visual inspection and trachea midline; neck extension not limited Respiratory normal respiratory effort Auscultation: lungs clear to auscultation bilaterally Cardiovascular Rate/Rhythm: regular rate and regular rhythm Heart Sounds: no murmur Musculoskeletal Spine: normal cervical ROM Extremities: full ROM of extremities Neurologic moves all extremities Psychiatric Orientation: alert and oriented x 3 Testing Laboratory Results 07/17/22 06:18 07/17/22 06:18 Urine Color Winkler 07/15/22 23:02 Urine Appearance Turbid (Clear) A 07/15/22 23:02 Urine pH 5.5 (4.5-7.5) 07/15/22 23:02 Ur Specific [place] 1.035 (1.000-1.030) H 07/15/22 23:02 Urine Protein 1+ (Negative) H 07/15/22 23:02 Urine Glucose (UA) Negative (Negative) 07/15/22 23:02 Urine Ketones Trace (Negative) H 07/15/22 23:02 Urine Nitrite Negative (Negative) 07/15/22 23:02 Ur Leukocyte Esterase Negative (Negative) 07/15/22 23:02 Urine WBC (Auto) 1-5 /hpf (0-5) 07/15/22 23:02 Urine RBC (Auto) 10-30 /hpf (0-4) H 07/15/22 23:02 U Hyaline Cast (Auto) 1-5 /lpf (0-5) 07/15/22 23:02 U Epithel Cells (Auto) 5-10 /lpf (0-5) H 07/15/22 23:02 Urine Bacteria (Auto) Negative (Negative) 07/15/22 23:02
[2022-07-17] MEDS: D5W AND 1/2NSS 1,000 ML IV SCH ×4 (00:52→22:18)
[2022-07-17] MEDS: HYDROmorphone INJ 0.5 MG/0.5 ML SYR IV PRN (01:39)
[2022-07-17] MEDS: ONDANSETRON INJ 2 MG/ML 2 ML VIAL IV PRN ×2 (01:39→08:01)
[2022-07-17] MEDS: ACETAMINOPHEN 325 MG TAB PO PRN (01:43)
[2022-07-17] MEDS: PIPERACILLIN/TAZOBACTAM 3.375 GM in DEXTROSE 5% 100 ML IV SCH ×3 (04:02→20:40)
[2022-07-17] MEDS ORDERED: ceFAZolin 2000MG 2,000 MG/15 ML SYR IV SCH (06:00)
[2022-07-17] MEDS ORDERED: EPINEPHrine INJ 1 MG/ML AMP ONE (06:55)
[2022-07-17] MEDS ORDERED: BUPIVACAINE 0.5 % 5 MG/1 ML MPF 30ML VIAL ONE (06:55)
[2022-07-17 07:02] LABS: Basophils # (auto) 0.05 K/uL (0-0.2); Basophils % (auto) 0.3 %; Hematocrit (blood only) 40.2 % (40.1-51.0); Hemoglobin 13.8 g/dl (14.0-18.0); Immature Granulocytes # (auto) 0.17 K/uL (0.00-0.02); Immature Granulocytes % (auto) 0.9 %; Lymphocytes # (auto) 1.46 K/uL (1.2-3.4); Lymphocytes % (auto) 7.3 %; Mean Corpuscular Hemoglobin 31.2 pg (25.0-34.0); Mean Corpuscular Hgb Conc 34.3 g/dL (32.0-36.0); Mean Corpuscular Volume 90.7 fL (80.0-100.0); Mean Platelet Volume 9.4 fL (9.4-12.4); Monocytes # (auto) 1.93 K/uL (0.24-0.82); Monocytes % (auto) 9.7 %; Neutrophils # (auto) 16.37 K/uL (1.4-6.5); Neutrophils % (auto) 81.8 %; Platelet Count 237 K/uL (130-400); RDW Coefficient of Variation 13.1 % (11.5-14.5); RDW Standard Deviation 43.8 fL (36.4-46.3); Red Blood Count 4.43 M/uL (4.63-6.08); White Blood Count 19.98 K/ul (4.8-10.8)
[2022-07-17] MEDS ORDERED: ePHEDrine sulfate 50 MG/ML AMP IV PRN (07:08)
[2022-07-17] MEDS ORDERED: MoRPHine SULFATE 10 MG/ML CARP/VIAL IV PRN (07:08)
[2022-07-17] MEDS ORDERED: ATROPINE SULFATE 0.1 MG/ML 10ML SYR IV PRN (07:08)
[2022-07-17] MEDS ORDERED: ONDANSETRON INJ 2 MG/ML 2 ML VIAL IV PRN (07:08)
[2022-07-17] MEDS ORDERED: MEPERIDINE HCL 25 MG/ML CARP/VIAL IV PRN (07:08)
--- NOTE | 2022-07-17 07:28 | History & Physical Bridge Note ---
Date of Service July 17, 2022 History & Physical Bridge Note I have examined the patient, reviewed the History & Physical and in the interval since the performance of the History & Physical I have noted the following changes of clinical significance: no changes noted
[2022-07-17 07:29] LABS: Albumin Globulin Ratio 1.2 (0.9-2); Albumin Level 3.9 gm/dl (3.4-5.0); BUN Creatinine Ratio 7.1 (10-20); Bilirubin,Total 3.7 mg/dl (0.2-1.0); Calcium 9.3 mg/dl (8.5-10.1); Est GFR (African American) 128.1 ml/min; Est GFR (Non-African American) 110.5 ml/min; Globulin 3.2 gm/dl (2.5-4.0); Total Protein 7.1 gm/dl (6.0-8.3)
[2022-07-17] MEDS ORDERED: LIDOCAINE 2% 2 ML VIAL/AMP(20MG/ML) INFIL ONE (08:28)
[2022-07-17] MEDS ORDERED: PROPOFOL IV EMULSION 10 MG/ML 20 ML VIAL IV ONE (08:28)
[2022-07-17] MEDS ORDERED: DEXAMETHASONE SOD INJ 4 MG/ML VIAL ONE ×2 (08:28→09:55)
[2022-07-17] MEDS ORDERED: ROCURONIUM BROMIDE 10 MG/ML 5 ML VIAL IV ONE ×3 (08:28→10:18)
[2022-07-17] MEDS ORDERED: fentaNYL citrate 100 MCG/2 ML VIAL ONE ×3 (08:28→11:40)
[2022-07-17] MEDS ORDERED: MIDAZOLAM HCL 1 MG/ML 2ML VIAL ONE (08:28)
[2022-07-17] MEDS ORDERED: ONDANSETRON INJ 2 MG/ML 2 ML VIAL ONE (08:28)
[2022-07-17] MEDS ORDERED: FAMOTIDINE/PF 20 MG/2 ML VIAL IV ONE (08:45)
[2022-07-17] MEDS ORDERED: OPTIRAY 300 IV ONE (09:49)
[2022-07-17] MEDS ORDERED: NEOSTIGMINE METHYLSULFATE 1 MG/ML 10ML VIAL ONE (09:55)
[2022-07-17] MEDS ORDERED: GLYCOPYRROLATE 0.2 MG/ML VIAL ONE ×2 (09:55→10:37)
[2022-07-17] MEDS ORDERED: SURGICEL ABSORB HEMOSTAT 2IN X 14IN TOP ONE (10:27)
--- NOTE | 2022-07-17 10:53 | Post Operative Brief Note ---
Immediate Post Op Note v1 Date of Surgery July 17, 2022 Pre & Post Diagnosis Operation Date: 07/17/22 08:50 Pre-Op Diagnosis: Acute cholecystitis Post-Op Diagnosis: Acute cholecystitis I identified the patient and participated in the time-out.: Yes Procedure Operation Date: 07/17/22 08:50 Actual Procedures p Laparoscopic Cholecystectomy (Not Applicable) - Ashish Huang MD Surgeon Ashish Huang MD Greenskeeper Laborer none Estimated Blood Loss 25 Findings Consistent with Post-Op Diagnosis (near gangrenous cholecystitis, duct too friable to perform IOC) Drains Harshad Drain (19 Fr Abdomen)
[2022-07-17] MEDS: DOCUSATE SODIUM 100 MG CAP PO SCH ×2 (11:23→20:32)
--- NOTE | 2022-07-17 11:33 | Operative Report (OR) ---
DATE OF SERVICE: 07/17/2022 PREOPERATIVE DIAGNOSIS: Acute cholecystitis with a slight elevation of his total bilirubin. POSTOPERATIVE DIAGNOSIS: Acute gangrenous cholecystitis. PROCEDURE PERFORMED: Laparoscopic cholecystectomy. SURGEON: Ashish Huang MD. RADIO ADJUSTER: None. ANESTHESIA: General endotracheal, 0.5% Marcaine with epinephrine local. ESTIMATED BLOOD LOSS: 25 mL. DRAINS: YULY drain in the gallbladder fossa. COMPLICATIONS: None. SPECIMENS: Gangrenous gallbladder sent for pathologic evaluation. INDICATIONS FOR PROCEDURE: This is a 36-year-old male admitted through the ED with acute abdominal p ain and underwent a workup, which showed slight elevation of his LFTs and acute cholecystitis. He wa s placed on IV fluids, IV antibiotics. A GI consult was obtained. They did not recommend any workup of his common bile duct. We will attempt to do a cholangiogram if possible. We went over the risks of an open procedure, common bile duct injury, retained common bile duct stone, postoperative bile l eak, bleeding and infection. He understands this and wishes to proceed. DESCRIPTION OF PROCEDURE: The patient was taken to the OR and underwent excellent general endotrache al anesthesia. His abdomen was prepped and draped in normal sterile fashion. Transverse supraumbili darek incision was made and dissection was taken down to identify his anterior fascia. 2-0 Vicryl was placed on either side of midline. Midline was incised sharply. The peritoneal cavity was entered bl untly with a Radha clamp. The Mckinley trocar was then inserted and good pneumoperitoneum was achieved to 15 mmHg pressure. The patient was placed in head up and rolled to the left. An 11 subxiphoid and two 5 lateral ports were placed in normal fashion. The gallbladder was acutely inflamed and appeared dark consistent with ischemia. The amount of adhesions and scarring was signif icant. Using sharp and blunt dissection, the fundus was identified, which was retracted superiorly. The neck was then identified after some blunt and sharp dissection. The neck was grasped and retrac [place] laterally. There was a lot of dense adhesions, which were taken down with hydrodissection and ca utery. A window was created between the gallbladder and gallbladder fossa showing two structures, on e was an obvious cystic artery. Once this critical view was seen, two clips were placed proximally on the cystic artery, one distally and the cystic artery was transected. The cystic duct itself was inflamed and very friable. In mob ilizing it, there was a small hole made in it, but because of how friable the duct was, I elected not to proceed with a cholangiogram with a low suspicion of common bile duct stones. Therefore, three c lips were placed proximal to the cystic duct and one distally, and the cystic duct was then transecte d. Electrocautery hook was then used to remove the gallbladder off the gallbladder fossa. This was a difficult dissection also and there were multiple defects in the gallbladder and mobilization. The gallbladder, once it was completely removed off the gallbladder fossa, was brought out with an Endob ag and sent for pathologic evaluation. The pneumoperitoneum was reestablished. The abdomen was then irrigated out. There were multiple raw bleeding areas on the gallbladder fossa, which were cauterized. It was still raw and inflamed. The refore, some Surgicel was used to reinforce the gallbladder fossa inflammation. A drain was then george tang in the gallbladder fossa and brought out with lateral incisions. This was secured with nylon sut ure. The ports and the pneumoperitoneum was then decompressed. 0 Vicryl was used to close the fasci al defect. Interrupted Vicryl was used to close the skin. Benzoin and Steri-Strips were used to minor nforce the incision. Sterile dressings were applied. The patient tolerated the procedure without any complications and was sent to the postoperative recov gordo for a period of observation and then will be sent to the floor for his care. Job ID: [id number]
[2022-07-17] MEDS: fentaNYL citrate 100 MCG/2 ML VIAL IV PRN ×4 (11:41→11:56)
--- NOTE | 2022-07-17 11:55 | Anesthesiology Progress Note ---
Date of Service July 17, 2022 Anesthesia Post Procedure Vital Signs Vital Signs: Temp Pulse Pulse Pulse Resp BP BP 07/17/22 11:50 103 H 20 167/97 H 07/17/22 11:40 106 H 14 157/103 H 07/17/22 11:30 98 H 15 162/97 H 07/17/22 11:20 101 H 20 176/98 H 07/17/22 11:10 97 H 24 164/106 H 07/17/22 11:00 36.8 C 94 H 15 164/106 H 07/17/22 08:00 37.2 C 103 H 18 141/91 H 07/16/22 20:35 07/16/22 22:11 36.8 C 108 H 16 133/81 07/16/22 14:33 37.1 C 81 16 149/82 H 07/16/22 12:45 37.2 C 85 18 139/89 Pulse Ox O2 Del Method O2 Flow Rate 07/17/22 11:50 94 Nasal Cannula 2 07/17/22 11:40 94 Room Air 07/17/22 11:30 96 Oxymask 4 07/17/22 11:20 95 Oxymask 4 07/17/22 11:10 94 Oxymask 4 07/17/22 11:00 95 Oxymask 6 07/17/22 08:00 97 Room Air 07/16/22 20:35 Room Air 07/16/22 22:11 95 Room Air 07/16/22 14:33 96 Room Air 07/16/22 12:45 97 Room Air Pain Intensity Abdomen: Pain Intensity: 5 Transfer of Care Handoff Completed per policy Notes Mental Status: alert / awake / arousable Patient Amnestic to Procedure: Yes Nausea / Vomiting: adequately controlled Pain: adequately controlled Airway Patency, RR, SpO2: stable & adequate BP & HR: stable & adequate Hydration State: stable & adequate Anesthetic Complications: no major complications apparent and Pt Satisfied with anesthetic care
[2022-07-17] MEDS ORDERED: oxyCODONE/ACETAMINOPHEN 5mg/325mg TAB PO PRN ×2 (12:26)
[2022-07-17] MEDS ORDERED: MoRPHine SULFATE 4 MG/ML 1 ML CARP\\VIAL IV PRN (12:26)
[2022-07-17] MEDS ORDERED: MoRPHine SULFATE 2 MG/ML CARP IV PRN (12:26)
--- NOTE | 2022-07-17 13:28 | Hospitalist Progress Note ---
Date of Service July 17, 2022 Assessment & Plan (1) Acute cholecystitis: Plan: Presented with abdominal pain of more than 24 hours duration Noted to have acute cholecystitis as per the investigation Has been started on intravenous Zosyn and getting intravenous fluid and symptomatic medications Appreciate surgery and GI input Status post laparoscopic cholecystectomy on 07/17/2022 Complains of pain in the abdomen without nausea no vomiting Remains hemodynamically stable with tachycardia Will monitor blood counts and the vitals Clinically stable DVT prophylaxis SCDs Admission and Anticipated Discharge Date Admission Date: July 16, 2022 Subjective 07/17/2022 The patient was seen and examined in medical floor He is a status post laparoscopic cholecystectomy today 07/17/2020 Complains abdominal pain and discomfort without nausea and or vomiting Denies any other significant symptoms Review of Systems Review of Systems: All systems reviewed and are unremarkable except as noted below Physical Exam Physical Exam: Lying in bed with minimal discomfort in the abdomen Constitutional: well developed, well nourished, + ill appearing and + obese Eyes: PERRL, conjunctivae normal, anicteric sclerae ENMT: external ear and nose normal, oropharynx normal Neck: trachea midline, no thyromegaly Respiratory: no respiratory distress Auscultation: lungs clear to au scultation bilaterally Cardiovascular: Rate/Rhythm: regular rate, regular rhythm and + tachycardic Heart Sounds: normal S1 and normal S2; no murmur Extremities: no edema Gastrointestinal (Abdomen): Inspection/Auscultation: + abdomen distended; + abnormal bowel sounds (Decreased) Percussion/Palpation: + abdomen tender and abdomen soft Musculoskeletal: No acute arthritis in any joint Neurologic: Alert, awake and oriented x3 Psychiatric: A+Ox3, euthymic affect Lymphatic: no cervical or axillary lymphadenopathy Results & Data Results & Data ([facility]) Vital Signs (Past 12 Hours) Vital Signs Temp Pulse Pulse Pulse Resp BP Pulse Ox 07/17/22 12:30 37.5 C 105 H 16 152/92 H 93 07/17/22 13:03 113 H 18 156/97 H 94 07/17/22 12:11 100 H 20 154/94 H 94 07/17/22 12:00 37.0 C 104 H 15 158/99 H 95 07/17/22 11:50 103 H 20 167/97 H 94 07/17/22 11:40 106 H 14 157/103 H 94 07/17/22 11:30 98 H 15 162/97 H 96 07/17/22 11:20 101 H 20 176/98 H 95 07/17/22 11:10 97 H 24 164/106 H 94 07/17/22 11:00 36.8 C 94 H 15 164/106 H 95 07/17/22 08:00 37.2 C 103 H 18 141/91 H 97 O2 Del Method O2 Flow Rate 07/17/22 12:30 Nasal Cannula 2 07/17/22 13:03 Nasal Cannula 2 07/17/22 12:11 Nasal Cannula 2 07/17/22 12:00 Nasal Cannula 2 07/17/22 11:50 Nasal Cannula 2 07/17/22 11:40 Room Air 07/17/22 11:30 Oxymask 4 07/17/22 11:20 Oxymask 4 07/17/22 11:10 Oxymask 4 07/17/22 11:00 Oxymask 6 07/17/22 08:00 Room Air Laboratory Results Short CBC 07/17/22 Range/Units 06:18 WBC 19.98 H (4.8-10.8) K/ul Hgb 13.8 L (14.0-18.0) g/dl Hct 40.2 (40.1-51.0) % Plt Count 237 (130-400) K/uL BMP 07/17/22 06:18 Sodium 132 L Potassium 4.0 Chloride 97 L Carbon Dioxide 28 BUN 6 Creatinine 0.85 Glucose 122 H Calcium 9.3 Liver Function 07/17/22 Range/Units 06:18 Total Bilirubin 3.7 H (0.2-1.0) mg/dl AST 21 (13-39) U/L ALT 26 (7-52) U/L Alkaline Phosphatase 57 (34-104) U/L Albumin 3.9 (3.4-5.0) gm/dl Medications Administered Current Inpatient Medications Acetaminophen (Acetaminophen 325 Mg Tab) 650 mg PO Q4H PRN PRN Reason: pain/fever Stop: 08/15/22 07:23 Last Admin: 07/17/22 01:43 Dose: 650 mg Atropine Sulfate (Atropine Sulfate 0.1 Mg/Ml 10ml Syr) 0.5 mg IV Q1M PRN PRN Reason: PACU Use-HR<40 &/or Bradycardi Stop: 07/17/22 15:08 Docusate Sodium (Docusate Sodium 100 Mg Cap) 100 mg PO BID [facility] Stop: 08/16/22 08:59 Last Admin: 07/17/22 11:23 Dose: Not Given Ephedrine Sulfate (Ephedrine Sulfate 50 Mg/Ml Amp) 5 mg IV Q5M PRN PRN Reason: PACU Use Only-SBP<90 mmHg Stop: 07/17/22 15:08 Fentanyl Citrate (Fentanyl Citrate 100 Mcg/2 Ml Vial) 25 mcg IV Q5M PRN PRN Reason: PACU Use Only-Pain Stop: 07/17/22 15:08 Last Admin: 07/17/22 11:56 Dose: 25 mcg Hydromorphone HCl (Hydromorphone Inj 0.5 Mg/0.5 Ml Syr) 0.5 mg IV Q3H PRN PRN Reason: Pain Stop: 07/30/22 07:23 Last Admin: 07/17/22 01:39 Dose: 0.5 mg Dextrose/Sodium Chloride (D5w And 1/2nss) 1,000 mls @ 125 mls/hr IV .Q8H [facility] Stop: 08/15/22 07:23 Last Admin: 07/17/22 12:33 Dose: 125 mls/hr Piperacillin Sod/Tazobactam (Sod 3.375 gm/ Dextrose) 115 mls @ 28.75 mls/hr IV Q8H [facility]; Protocol Stop: 07/26/22 12:59 Last Infusion: 07/17/22 11:24 Dose: Infused Meperidine HCl (Meperidine Hcl 25 Mg/Ml Carp/Vial) 12.5 mg IV Q5M PRN PRN Reason: Surgi Pain/Chills/Rigors Stop: 07/17/22 15:09 Morphine Sulfate (Morphine Sulfate 10 Mg/Ml Carp/Vial) 2 mg IV Q5M PRN PRN Reason: PACU Use Only-Pain Stop: 07/17/22 15:08 Morphine Sulfate (Morphine Sulfate 2 Mg/Ml Carp) 2 mg IV Q3H PRN PRN Reason: Pain (1,2,3,4,5) & Pre PT Stop: 07/31/22 12:25 Morphine Sulfate (Morphine Sulfate 4 Mg/Ml 1 Ml Carp\Vial) 4 mg IV Q3H PRN PRN Reason: Pain (6,7,8,9,10) Stop: 07/31/22 12:25 Ondansetron HCl (Ondansetron Inj 2 Mg/Ml 2 Ml Vial) 4 mg IV Q6H PRN PRN Reason: Nausea Stop: 08/15/22 07:23 Last Admin: 07/17/22 08:01 Dose: 4 mg Ondansetron HCl (Ondansetron Inj 2 Mg/Ml 2 Ml Vial) 4 mg IV ONCE PRN PRN Reason: PACU Use Only-Nausea/Vomiting Stop: 07/17/22 15:09 Oxycodone/Acetaminophen (Oxycodone/Acetaminophen 5mg/325mg Tab) 1 tab PO Q4H PRN PRN Reason: MODERATE Pain (4,5,6) & Pre PT Stop: 07/31/22 12:25 Oxycodone/Acetaminophen (Oxycodone/Acetaminophen 5mg/325mg Tab) 2 tab PO Q4H PRN PRN Reason: SEVERE Pain (7,8,9,10) Stop: 07/31/22 12:25 Polyethylene Glycol (Polyethylene (Miralax) 17 Gm Pack) 17 gm PO DAILY PRN PRN Reason: Constipation Stop: 08/15/22 07:23
--- NOTE | 2022-07-17 16:44 | Electrocardiogram Report ---
Test Reason : Blood Pressure : / mmHG Vent. Rate : 112 BPM Atrial Rate : 112 BPM P-R Int : 142 ms QRS Dur : 108 ms QT Int : 342 ms P-R-T Axes : 034 025 011 degrees QTc Int : 466 ms Sinus tachycardia Nonspecific T wave abnormality Abnormal ECG No previous ECGs available Confirmed by Kai Marinelli ([id number]) on 07/17/2022 4:43:25 PM Referred By: REFERRED SELF Confirmed By:Alek Marinelli
[2022-07-18] MEDS: D5W AND 1/2NSS 1,000 ML IV SCH ×3 (04:35→20:37)
[2022-07-18] MEDS: PIPERACILLIN/TAZOBACTAM 3.375 GM in DEXTROSE 5% 100 ML IV SCH ×3 (04:35→20:37)
[2022-07-18 06:25] LABS: Basophils # (auto) 0.02 K/uL (0-0.2); Basophils % (auto) 0.1 %; Hematocrit (blood only) 37.6 % (40.1-51.0); Hemoglobin 12.8 g/dl (14.0-18.0); Immature Granulocytes # (auto) 0.07 K/uL (0.00-0.02); Immature Granulocytes % (auto) 0.4 %; Lymphocytes # (auto) 1.54 K/uL (1.2-3.4); Lymphocytes % (auto) 9.5 %; Mean Corpuscular Hemoglobin 30.9 pg (25.0-34.0); Mean Corpuscular Volume 90.8 fL (80.0-100.0); Mean Platelet Volume 9.2 fL (9.4-12.4); Monocytes # (auto) 1.25 K/uL (0.24-0.82); Monocytes % (auto) 7.7 %; Neutrophils # (auto) 13.25 K/uL (1.4-6.5); Neutrophils % (auto) 82.3 %; Platelet Count 287 K/uL (130-400); RDW Coefficient of Variation 13.2 % (11.5-14.5); RDW Standard Deviation 43.8 fL (36.4-46.3); Red Blood Count 4.14 M/uL (4.63-6.08); White Blood Count 16.13 K/ul (4.8-10.8)
[2022-07-18 06:47] LABS: Albumin Globulin Ratio 1.1 (0.9-2); Albumin Level 3.8 gm/dl (3.4-5.0); BUN Creatinine Ratio 9.1 (10-20); Bilirubin,Total 1.7 mg/dl (0.2-1.0); Calcium 9.2 mg/dl (8.5-10.1); Creatinine Clr Calc Pharmacy 132.3 ml/min; Est GFR (African American) 126.3 ml/min; Globulin 3.5 gm/dl (2.5-4.0); Total Protein 7.3 gm/dl (6.0-8.3)
[2022-07-18] MEDS: DOCUSATE SODIUM 100 MG CAP PO SCH ×2 (07:40→20:37)
--- NOTE | 2022-07-18 11:08 | Hospitalist Progress Note ---
Date of Service July 18, 2022 Assessment & Plan (1) Acute cholecystitis: Plan: Presented with abdominal pain of more than 24 hours duration Noted to have acute cholecystitis as per the investigation Has been started on intravenous Zosyn and getting intravenous fluid and symptomatic medications Appreciate surgery and GI input Status post laparoscopic cholecystectomy on 07/17/2022 Complains of pain in the abdomen without nausea no vomiting Remains hemodynamically stable with tachycardia Much better today and no more tachycardia Blood counts remained stable Bowel has not passed yet but passing gas Await surgery follow-up and recommendation DVT prophylaxis SCDs Admission and Anticipated Discharge Date Admission Date: July 16, 2022 Subjective 07/17/2022 The patient was seen and examined in medical floor He is a status post laparoscopic cholecystectomy today 07/17/2020 Complains abdominal pain and discomfort without nausea and or vomiting Denies any other significant symptoms 07/18/2022 The patient was seen and examined in medical floor He is out of bed on a chair and has been feeling much better Has abdominal discomfort without nausea and or vomiting Bowel has not moved but passing gas Review of Systems Review of Systems: All systems reviewed and are unremarkable except as noted below Physical Exam Physical Exam: Sitting on a chair without any acute distress Constitutional: well developed, well nourished, + ill appearing and + obese Eyes: PERRL, conjunctivae normal, anicteric sclerae ENMT: external ear and nose normal, oropharynx normal Neck: trachea midline, no thyromegaly Respiratory: no respiratory distress Auscultation: lungs clear to auscultation bilaterally Cardiovascular: Rate/Rhythm: regular rate, regular rhythm and + tachycardic Heart Sounds: normal S1 and normal S2; no murmur Extremities: no edema Gastrointestinal (Abdomen): Inspection/Auscultation: + abdomen distended; + abnormal bowel sounds (Decreased) Percussion/Palpation: + abdomen tender and abdomen soft Musculoskeletal: No acute arthritis in any joint Neurologic: normal touch/pain/proprioception and moves all extremities; no focal motor deficits Psychiatric: A+Ox3, euthymic affect Lymphatic: no cervical or axillary lymphadenopathy Results & Data Results & Data ([facility]) Vital Signs (Past 12 Hours) Vital Signs Temp Pulse Resp BP Pulse Ox O2 Del Method 07/18/22 07:14 36.6 C 83 16 136/87 98 Room Air 07/18/22 03:34 37.1 C 84 18 145/92 H 95 Room Air 07/17/22 23:39 36.5 C 95 H 18 128/83 94 Room Air Laboratory Results Short CBC 07/18/22 Range/Units 06:04 WBC 16.13 H (4.8-10.8) K/ul Hgb 12.8 L (14.0-18.0) g/dl Hct 37.6 L (40.1-51.0) % Plt Count 287 (130-400) K/uL BMP 07/18/22 06:04 Sodium 135 L Potassium 4.0 Chloride 101 Carbon Dioxide 28 BUN 8 Creatinine 0.88 Glucose 113 H Calcium 9.2 Liver Function 07/18/22 Range/Units 06:04 Total Bilirubin 1.7 H D (0.2-1.0) mg/dl AST 32 (13-39) U/L ALT 40 (7-52) U/L Alkaline Phosphatase 49 (34-104) U/L Albumin 3.8 (3.4-5.0) gm/dl Medications Administered Current Inpatient Medications Acetaminophen (Acetaminophen 325 Mg Tab) 650 mg PO Q4H PRN PRN Reason: pain/fever Stop: 08/15/22 07:23 Last Admin: 07/17/22 01:43 Dose: 650 mg Docusate Sodium (Docusate Sodium 100 Mg Cap) 100 mg PO BID [facility] Stop: 08/16/22 08:59 Last Admin: 07/18/22 07:40 Dose: 100 mg Hydromorphone HCl (Hydromorphone Inj 0.5 Mg/0.5 Ml Syr) 0.5 mg IV Q3H PRN PRN Reason: Pain Stop: 07/30/22 07:23 Last Admin: 07/17/22 01:39 Dose: 0.5 mg Dextrose/Sodium Chloride (D5w And 1/2nss) 1,000 mls @ 125 mls/hr IV .Q8H [facility] Stop: 08/15/22 07:23 Last Admin: 07/18/22 04:35 Dose: 125 mls/hr Piperacillin Sod/Tazobactam (Sod 3.375 gm/ Dextrose) 115 mls @ 28.75 mls/hr IV Q8H [facility]; Protocol Stop: 07/26/22 12:59 Last Infusion: 07/18/22 08:36 Dose: Infused Morphine Sulfate (Morphine Sulfate 2 Mg/Ml Carp) 2 mg IV Q3H PRN PRN Reason: Pain (1,2,3,4,5) & Pre PT Stop: 07/31/22 12:25 Morphine Sulfate (Morphine Sulfate 4 Mg/Ml 1 Ml Carp\Vial) 4 mg IV Q3H PRN PRN Reason: Pain (6,7,8,9,10) Stop: 07/31/22 12:25 Ondansetron HCl (Ondansetron Inj 2 Mg/Ml 2 Ml Vial) 4 mg IV Q6H PRN PRN Reason: Nausea Stop: 08/15/22 07:23 Last Admin: 07/17/22 08:01 Dose: 4 mg Oxycodone/Acetaminophen (Oxycodone/Acetaminophen 5mg/325mg Tab) 1 tab PO Q4H PRN PRN Reason: MODERATE Pain (4,5,6) & Pre PT Stop: 07/31/22 12:25 Oxycodone/Acetaminophen (Oxycodone/Acetaminophen 5mg/325mg Tab) 2 tab PO Q4H PRN PRN Reason: SEVERE Pain (7,8,9,10) Stop: 07/31/22 12:25 Polyethylene Glycol (Polyethylene (Miralax) 17 Gm Pack) 17 gm PO DAILY PRN PRN Reason: Constipation Stop: 08/15/22 07:23
--- NOTE | 2022-07-18 12:33 | Surgery Progress Note ---
Date of Service July 18, 2022 Assessment & Plan (1) Acute cholecystitis: Plan: would continue IV abx through tomorrow discharge tomorrow if does well today Admission and Anticipated Discharge Date Admission Date: July 16, 2022 Subjective pain controlled eating OK Review of Systems 2 Constitutional: no fever and no chills Respiratory: no dyspnea Cardiovascular: no chest pain Gastrointestinal: + abdominal pain; no nausea and no vomiting Genitourinary: no dysuria Physical Exam Constitutional: WD/WN, vitals as above Eyes: PERRL, conjunctivae normal, anicteric sclerae Neck: trachea midline Respiratory: normal respiratory effort, lungs clear to auscultation Cardiovascular: RRR, no murmur, no edema Gastrointestinal (Abdomen): Inspection/Auscultation: abdomen normal to inspection, normal bowel sounds and + abdominal surgical incision; abdomen not distended Percussion/Palpation: + abdomen tender and abdomen soft; no guarding and abdomen not rigid Musculoskeletal: Head/Neck/Chest: normocephalic and head atraumatic Results & Data ([facility]) Vital Signs (Past 12 Hours) Vital Signs Temp Pulse Resp BP Pulse Ox O2 Del Method 07/18/22 07:14 36.6 C 83 16 136/87 98 Room Air 07/18/22 03:34 37.1 C 84 18 145/92 H 95 Room Air
[2022-07-18] MEDS: ACETAMINOPHEN 325 MG TAB PO PRN (14:08)
[2022-07-19] MEDS: D5W AND 1/2NSS 1,000 ML IV SCH (04:43)
[2022-07-19] MEDS: PIPERACILLIN/TAZOBACTAM 3.375 GM in DEXTROSE 5% 100 ML IV SCH (04:43)
[2022-07-19] MEDS ORDERED: ALUMINUM/MAGNESIUM/SIMETH (MAALOX MAX) 30 ML UDC PO STA (06:32)
[2022-07-19 06:40] LABS: Basophils # (auto) 0.06 K/uL (0-0.2); Basophils % (auto) 0.5 %; Eosinophils # (auto) 0.07 K/uL (0-0.50); Eosinophils % (auto) 0.6 %; Hematocrit (blood only) 41.4 % (40.1-51.0); Hemoglobin 13.9 g/dl (14.0-18.0); Immature Granulocytes # (auto) 0.04 K/uL (0.00-0.02); Immature Granulocytes % (auto) 0.4 %; Lymphocytes # (auto) 2.14 K/uL (1.2-3.4); Lymphocytes % (auto) 19.5 %; Mean Corpuscular Hemoglobin 30.2 pg (25.0-34.0); Mean Corpuscular Hgb Conc 33.6 g/dL (32.0-36.0); Mean Platelet Volume 8.5 fL (9.4-12.4); Monocytes # (auto) 0.77 K/uL (0.24-0.82); Neutrophils # (auto) 7.91 K/uL (1.4-6.5); Platelet Count 328 K/uL (130-400); RDW Coefficient of Variation 13.2 % (11.5-14.5); RDW Standard Deviation 43.8 fL (36.4-46.3); White Blood Count 10.99 K/ul (4.8-10.8)
[2022-07-19 07:04] LABS: BUN Creatinine Ratio 14.4 (10-20); Calcium 8.8 mg/dl (8.5-10.1); Creatinine Clr Calc Pharmacy 129.4 ml/min; Est GFR (African American) 125.1 ml/min; Potassium 3.5 mmol/L (3.5-5.1)
[2022-07-19] MEDS: DOCUSATE SODIUM 100 MG CAP PO SCH (07:49)
--- NOTE | 2022-07-19 09:30 | Surgery Progress Note ---
Date of Service July 19, 2022 Assessment & Plan (1) Acute cholecystitis: Plan: POD # 2 lap jana for grangrenous cholecystitis -avss - postop pain minimal - no n,v - drain with bloody serosanguineous Plan: Okay from surgical standpoint for discharge discharge instructions reviewed remove marielle drain prior to discharge home with oral antibiotics for another 4 days for total of 7 days follow-up surgery office in 1-[address] Barrera who agrees with above. Admission and Anticipated Discharge Date Admission Date: July 16, 2022 Subjective feeling well no abdominal pain, not taking any pain medication no n,v bloating is improved alot of drainage around drain site ambulating and urinating without difficulty Physical Exam Constitutional: WD/WN, vitals as above no acute distress and not ill appearing Respiratory: normal respiratory effort; no respiratory distress Gastrointestinal (Abdomen): Inspection/Auscultation: abdomen normal to inspect ion, + abdominal surgical incision (clean, dry, dressings, serous drainage around marielle drain site) and + abdominal surgical drain present (bloody serosanguineous); abdomen not distended Percussion/Palpation: abdomen soft; abdomen nontender, no guarding and abdomen not rigid Skin: no rashes, warm and dry no jaundice Psychiatric: A+Ox3, euthymic affect Results & Data ([facility]) Vital Signs (Past 12 Hours) Vital Signs Temp Pulse Resp BP BP Pulse Ox O2 Del Method 07/19/22 07:47 36.9 C 95 H 18 135/92 96 Room Air 07/18/22 23:12 37.0 C 79 16 126/79 95 Room Air 07/18/22 22:00 37 C 87 18 130/90 96 Room Air Laboratory Results 07/19/22 07/19/22 Range/Units 06:17 06:17 WBC 10.99 H (4.8-10.8) K/ul RBC 4.60 L (4.63-6.08) M/uL Hgb 13.9 L (14.0-18.0) g/dl Hct 41.4 (40.1-51.0) % MCV 90.0 (80.0-100.0) fL MCH 30.2 (25.0-34.0) pg MCHC 33.6 (32.0-36.0) g/dL RDW Std Deviation 43.8 (36.4-46.3) fL RDW Coeff of Maggy 13.2 (11.5-14.5) % Plt Count 328 (130-400) K/uL MPV 8.5 L (9.4-12.4) fL Immature Gran % (Auto) 0.4 % Neut % (Auto) 72.0 % Lymph % (Auto) 19.5 % Luna % (Auto) 7.0 % Eos % (Auto) 0.6 % Baso % (Auto) 0.5 % Neut # (Auto) 7.91 H (1.4-6.5) K/uL Lymph # (Auto) 2.14 (1.2-3.4) K/uL Luna # (Auto) 0.77 (0.24-0.82) K/uL Eos # (Auto) 0.07 (0-0.50) K/uL Baso # (Auto) 0.06 (0-0.2) K/uL Immature Gran # (Auto) 0.04 H (0.00-0.02) K/uL Sodium 133 L (136-145) mmol/L Potassium 3.5 (3.5-5.1) mmol/L Chloride 100 (98-107) mmol/L Carbon Dioxide 25 (21-32) mmol/L Anion Gap 8 (3-11) BUN 13 (6-23) mg/dl Creatinine 0.90 (0.6-1.4) mg/dl Est Cr Clr Drug Dosing 129.4 ml/min Est GFR ( Amer) 125.1 ml/min Est GFR (Non-Af Amer) 108.0 ml/min BUN/Creatinine Ratio 14.4 (10-20) Glucose 113 H (70-99(Fasting)) mg/dl Calcium 8.8 (8.5-10.1) mg/dl
--- NOTE | 2022-07-19 10:53 | Student Report ---
B[employer]AN [employer] Student Progress Note Date of Service Date of service: July 19, 2022 Subjective Subjective: 36 yo male with approx 2 week history of multiple episodes of post-prandial abdominal pain, specificaly right upper quadrant, presented to ED for evaluation on 07/15. Abd US/CT scan were positive for acute cholecystitis, pt jaundiced on presentation and T Bili 2.2. Received IV fluid, zofran, and dilaudid in the ED. IV Zosyn started by hospitalists team, general surgery consult placed. Pt taken to OR on 07/17 for lap jana, now POD 2. Pt OOB in chair without c/o fever, chills, incisional pain, CP, SOB, N/V/D. Does report some heartburn yesterday morning, but said he had relief after taking an antiacid. Reports that someone came in this morning to pull his surgical drain and denies any pain or issues since removal. Pt states he has begun having BMs and urinates without difficulty. Reports no issues with taking liquids, does not have much appetite for food d/t not tasting food well. Pt has been up ambulating in the room without difficulty, denies any dizziness or lightheadedness with position changes, movement. ROS ROS: See above for pertinent positives & negatives. A total of 10 systems reviewed and were otherwise negative. Physical Exam Physical Exam: Vital Signs Temp 36.9 C 07/19/22 07:47 Pulse 95 H 07/19/22 07:47 Resp 18 07/19/22 07:47 BP 135/92 07/19/22 07:47 Pulse Ox 96 07/19/22 07:47 O2 Del Method 07/19/22 07:47 O2 Flow Rate 2 07/17/22 13:03 Intake & Output 07/18/22 07/19/22 07/19/22 18:59 06:59 18:59 Intake Total 1227.917 / 3702.917 2475 / 3702.917 715 / 715 Output Total 1400 / 2165 765 / 2165 Balance -172.083 / 0203.920 6185 / 1537.917 715 / 715 Intake: IV 1227.917 / 3342.917 2115 / 3342.917 715 / 715 D5w and 1/2Nss 1,000 ml @ 125 997.917 / 2997.917 2000 / 2997.917 600 / 600 mls/hr IV .Q8H [facility] Rx#:[id number] Piperacillin/Tazobactam 3.375 230 / 345 115 / 345 115 / 115 gm In Dextrose 5% 100 ml @ 28. 75 mls/hr IV Q8H [facility] Rx#: [id number] Oral 360 / 360 Output: Urine 1400 / 2100 700 / 2100 Drain Output 65 / 65 Right Abdomen YULY 65 / 65 General: Well-appearing, in no significant distress. Converses appropriately, calm and cooperative. HEENT: No scleral icterus, PERRLA, neck supple. Atraumatic. Normocephalic. Cardiovascular: Regular rate and rhythm, no murmur, gallop, S3, S4. Bilateral radial and DP pulses +2 palpable. Pulmonary: Clear to auscultation bilaterally, normal work of breathing. Pt on RA. Abdomen: Full, nontender, slightly distended, positive bowel sounds in quadrants x4. Musculoskeletal: Atraumatic, no peripheral edema bilaterally. Neurologic: Patient awake alert and oriented x 4, full strength in all 4 extremities. Skin: Warm, dry, no rash. Surgical dressings in place, all intact, minor sh adowing noted. Results Results: Short CBC 07/19/22 06:17 WBC 10.99 H Hgb 13.9 L Hct 41.4 Plt Count 328 BMP 07/19/22 06:17 Sodium 133 L Potassium 3.5 Chloride 100 Carbon Dioxide 25 BUN 13 Creatinine 0.90 Glucose 113 H Calcium 8.8 Impressions Abdomen/Pelvis CT 07/16/22 01:03 CT abd pelvis IV con only CLINICAL HISTORY: eval RUQ pain TECHNIQUE: Helical axial images of the abdomen and pelvis were obtained and displayed. Automated dose lowering techniques and/or adjustment according to patient size were utilized for this exam. This exam was performed with intravenous contrast. CT DOSE: 593.80 mGy.cm COMPARISON: Comparison is made to right upper quadrant ultrasound 07/16/2022 FINDINGS: Lower chest: Exam is limited by patient motion. Atelectasis is seen. Liver: Unremarkable. No focal lesions are seen. Gallbladder and biliary tree: The gallbladder wall thickening and pericholecystic fluid is seen. The gallbladder wall measures up to 4 mm. No intra- or extrahepatic biliary ductal dilation. Pancreas: Unremarkable, no focal lesions. Spleen: Unremarkable. Adrenals: Unremarkable. Kidneys and ureters: A right renal cyst is seen. Bladder: Unremarkable. Reproductive organs: Unremarkable. Bowel: Unremarkable appearance of the bowel. The appendix is normal. Lymph nodes Retroperitoneal: Unremarkable. Pelvic: Unremarkable. Mesenteric: Unremarkable. Peritoneum: A small amount of free fluid is seen in the lower abdomen. Vessels: Unremarkable. Abdominal wall: Unremarkable. Bones: Unremarkable. IMPRESSION: There is gallbladder wall thickening and pericholecystic fluid stranding. Findings are suggestive of acute cholecystitis, however correlation with gallbladder ultrasound is recommended. If further evaluation is desired, a nuclear medicine HIDA scan can be performed. ACT 112: Negative or not required by law. Electronically signed by: Tawanda Long M.D. 07/16/2022 9:11 AM Gallbladder Ultrasound 07/16/22 23:28 ULTRASOUND RIGHT UPPER QUADRANT ABDOMEN CLINICAL HISTORY: Right upper quadrant abdominal pain. COMPARISON STUDY: No priors. TECHNIQUE: Real-time, grayscale, and color flow sonography of the right upper quadrant of the abdomen was performed. Images are reviewed in the transverse and longitudinal planes. FINDINGS: Liver: The liver is enlarged and demonstrates heterogeneously increased echotexture indicating steatosis. There is no intrahepatic biliary ductal dilatation. The main portal vein is patent. Gallbladder: The gallbladder is distended and appears mildly thick walled lise uring up to 4 mm. Calcifications in the fundal region may represent gallstones versus polyps. No pericholecystic fluid is seen. A sonographic Walden's sign is reportedly absent. The common bile duct measures up to 0.3 cm in diameter. Pancreas: Visualized portions of the pancreatic head and body are normal in appearance. Right kidney: Survey images of the right kidney demonstrate normal size and echotexture. There is no hydronephrosis. A 3.6 cm cyst is incidentally noted. Ascites: None. IMPRESSION: 1. The gallbladder is distended an the wall appears mildly thickened. Calcifications within the fundal region are nonmobile and may represent gallstones versus polyps. There is no pericholecystic fluid and a sonographic Walden's sign is reportedly absent. There is no definitive sonographic evidence for acute cholecystitis at this time. If there is strong clinical/laboratory concern for acute cholecystitis a nuclear hepatobiliary scan should be obtained. 2. There is no intra or extrahepatic biliary ductal dilatation. 3. Hepatomegaly and hepatic steatosis. ACT 112: Negative or not required by law. Electronically signed by: Jerel Ovalle M.D. 07/16/2022 7:29 AM Procedures Operation Date: 07/17/22 08:50 Actual Procedure Side Surgeon p Laparoscopic Cholecystectomy Not Applicable Ashish Huang MD A&P A&P: 1. Acute cholecystitis s/p laporoscopic cholecystectomy, POD 2: EBL: 25 mls, Hgb and Hct stable at 13.9 and 41.1. Pt reports not requiring pain medication, last Tylenol 07/18, last narcotic dose 07/17. YULY drain pulled this morning without incident. Switch to oral antibiotics (Augmentin 500/125mg BID) to continue after discharge for a total of 7 days (ends 07/23). Per gen surg, ok for discharge. Will need to schedule surgical follow-up 1-2 weeks after discharge. 2. DVT proph: SCDs while inpatient, encourage ambulation. Disposition: Per general surgery ok for discharge. Plan for d/c home today.
--- NOTE | 2022-07-19 17:35 | Discharge Summary ---
Date of Service July 19, 2022 Admission HPI Per Admitting Provider This is a 36-year-old male with past medical history significant for chronic rhinitis, history of right parotid lobe small mass, too small for biopsy and is following with ENT, presents with abdominal pain since yesterday morning. Yesterday morning, he ate hash brown, since then he has right upper quadrant abdominal pain, severe in nature, has significant nausea, vomiting, which is not improving, so came here and CAT scan showing cholecystitis. Currently requesting for pain medication and also says he did not move his bowel for the last several days and is asking for stool softeners. Denies any fever or chills. Normal bladder movements. No headache, no blurred visions, no earache, no runny nose, no sore throat, no cough, no chest pain. Sometimes, he gets short of breath with the pain. Currently, resting comfortably and hemodynamically stable. Admission Exam Per Admitting Provider GENERAL: The patient is of moderate build, not in acute distress. VITAL SIGNS: Temperature 36.1, pulse 71, respiratory rate 18, blood pressure 152/92, oxygen 97% on room air. HEENT: Pupils equal, round and reactive to light. Oral mucosa dry. NECK: No JVD or neck masses. CARDIOVASCULAR: S1 and S2 heard. Regular rate and rhythm. No murmur, no gallop. RESPIRATORY SYSTEM: Normal AP diameter. No accessory muscle use. No wheezing, no crackles. ABDOMEN: Soft, bowel sounds present. Tenderness in the right upper quadrant region. Mild guarding, no rigidity, no distention. CENTRAL NERVOUS SYSTEM: Cranial nerves II-XII grossly intact, nonfocal. EXTREMITIES: No edema, no erythema. Principal Diagnosis Acute cholecystitis Discharge Exam Constitutional WD/WN, vitals as above no acute distress Respiratory normal respiratory effort, lungs clear to auscultation Cardiovascular Rate/Rhythm: regular rate and regular rhythm Vessels: normal peripheral pulses Extremities: no edema Gastrointestinal (Abdomen) Inspection/Auscultation: + abdominal surgical incision (dressings in place with some staining noted ) Percussion/Palpation: abdomen soft; abdomen nontender Skin no rashes, warm and dry Neurologic no focal motor deficits Psychiatric A+Ox3, euthymic affect Discharge Data Allergies Allergy/AdvReac Type Severity Reaction Status Date / Time CUT GRASS Allergy Intermediate CONGESTION Uncoded 07/15/22 23:22 Consultations 07/16/22 08:00 Consult Gastroenterology Routine Consult General Surgery Routine Procedures Performed Operation Date: 07/17/22 08:50 Actual Procedures p Laparoscopic Cholecystectomy (Not Applicable) - Ashish Huang MD Ordered Studies Laboratory Results WBC 10.99 K/ul (4.8-10.8) H 07/19/22 06:17 RBC 4.60 M/uL (4.63-6.08) L 07/19/22 06:17 Hgb 13.9 g/dl (14.0-18.0) L 07/19/22 06:17 Hct 41.4 % (40.1-51.0) 07/19/22 06:17 MCV 90.0 fL (80.0-100.0) 07/19/22 06:17 MCH 30.2 pg (25.0-34.0) 07/19/22 06:17 MCHC 33.6 g/dL (32.0-36.0) 07/19/22 06:17 RDW Std Deviation 43.8 fL (36.4-46.3) 07/19/22 06:17 RDW Coeff of Maggy 13.2 % (11.5-14.5) 07/19/22 06:17 Plt Count 328 K/uL (130-400) 07/19/22 06:17 MPV 8.5 fL (9.4-12.4) L 07/19/22 06:17 Immature Gran % (Auto) 0.4 % 07/19/22 06:17 Neut % (Auto) 72.0 % 07/19/22 06:17 Lymph % (Auto) 19.5 % 07/19/22 06:17 Owsley % (Auto) 7.0 % 07/19/22 06:17 Eos % (Auto) 0.6 % 07/19/22 06:17 Baso % (Auto) 0.5 % 07/19/22 06:17 Neut # (Auto) 7.91 K/uL (1.4-6.5) H 07/19/22 06:17 Lymph # (Auto) 2.14 K/uL (1.2-3.4) 07/19/22 06:17 Owsley # (Auto) 0.77 K/uL (0.24-0.82) 07/19/22 06:17 Eos # (Auto) 0.07 K/uL (0-0.50) 07/19/22 06:17 Baso # (Auto) 0.06 K/uL (0-0.2) 07/19/22 06:17 Immature Gran # (Auto) 0.04 K/uL (0.00-0.02) H 07/19/22 06:17 Sodium 133 mmol/L (136-145) L 07/19/22 06:17 Potassium 3.5 mmol/L (3.5-5.1) 07/19/22 06:17 Chloride 100 mmol/L (98-107) 07/19/22 06:17 Carbon Dioxide 25 mmol/L (21-32) 07/19/22 06:17 Anion Gap 8 (3-11) 07/19/22 06:17 BUN 13 mg/dl (6-23) 07/19/22 06:17 Creatinine 0.90 mg/dl (0.6-1.4) 07/19/22 06:17 Est Cr Clr Drug Dosing 129.4 ml/min 07/19/22 06:17 Est GFR ( Amer) 125.1 ml/min 07/19/22 06:17 Est GFR (Non-Af Amer) 108.0 ml/min 07/19/22 06:17 BUN/Creatinine Ratio 14.4 (10-20) 07/19/22 06:17 Glucose 113 mg/dl (70-99(Fasting)) H 07/19/22 06:17 Calcium 8.8 mg/dl (8.5-10.1) 07/19/22 06:17 Magnesium 1.7 mg/dl (1.7-2.4) 07/16/22 07:40 Total Bilirubin 1.7 mg/dl (0.2-1.0) H D 07/18/22 06:04 Direct Bilirubin 0.6 mg/dl (0-0.2) H 07/16/22 07:40 AST 32 U/L (13-39) 07/18/22 06:04 ALT 40 U/L (7-52) 07/18/22 06:04 Alkaline Phosphatase 49 U/L (34-104) 07/18/22 06:04 Total Protein 7.3 gm/dl (6.0-8.3) 07/18/22 06:04 Albumin 3.8 gm/dl (3.4-5.0) 07/18/22 06:04 Globulin 3.5 gm/dl (2.5-4.0) 07/18/22 06:04 Albumin/Globulin Ratio 1.1 (0.9-2) 07/18/22 06:04 Lipase 8 U/L (11-82) L 07/15/22 Unknown Urine Color [place] 07/15/22 23:02 Urine Appearance Turbid (Clear) A 07/15/22 23:02 Urine pH 5.5 (4.5-7.5) 07/15/22 23:02 Ur Specific [place] 1.035 (1.000-1.030) H 07/15/22 23:02 Urine Protein 1+ (Negative) H 07/15/22 23:02 Urine Glucose (UA) Negative (Negative) 07/15/22 23:02 Urine Ketones Trace (Negative) H 07/15/22 23:02 Urine Blood 2+ (Negative) H 07/15/22 23:02 Urine Nitrite Negative (Negative) 07/15/22 23:02 Urine Bilirubin 1+ (Negative) H 07/15/22 23:02 Urine Urobilinogen Negative (Negative) 07/15/22 23:02 Ur Leukocyte Esterase Negative (Negative) 07/15/22 23:02 Urine WBC (Auto) 1-5 /hpf (0-5) 07/15/22 23:02 Urine RBC (Auto) 10-30 /hpf (0-4) H 07/15/22 23:02 U Hyaline Cast (Auto) 1-5 /lpf (0-5) 07/15/22 23:02 U Epithel Cells (Auto) 5-10 /lpf (0-5) H 07/15/22 23:02 Urine Bacteria (Auto) Negative (Negative) 07/15/22 23:02 Urine Crystals Not Reportable 07/15/22 23:02 Amorphous Sediment Present (None Prsent) A 07/15/22 23:02 SARS-CoV-2, RNA, NAAT NEGATIVE (NEGATIVE) 07/16/22 03:54 Impressions Abdomen/Pelvis CT 07/16/22 01:03 CT abd pelvis IV con only CLINICAL HISTORY: eval RUQ pain TECHNIQUE: Helical axial images of the abdomen and pelvis were obtained and displayed. Automated dose lowering techniques and/or adjustment according to patient size were utilized for this exam. This exam was performed with intravenous contrast. CT DOSE: 593.80 mGy.cm COMPARISON: Comparison is made to right upper quadrant ultrasound 07/16/2022 FINDINGS: Lower chest: Exam is limited by patient motion. Atelectasis is seen. Liver: Unremarkable. No focal lesions are seen. Gallbladder and biliary tree: The gallbladder wall thickening and pericholecystic fluid is seen. The gallbladder wall measures up to 4 mm. No intra- or extrahepatic biliary ductal dilation. Pancreas: Unremarkable, no focal lesions. Spleen: Unremarkable. Adrenals: Unremarkable. Kidneys and ureters: A right renal cyst is seen. Bladder: Unremarkable. Reproductive organs: Unremarkable. Bowel: Unremarkable appearance of the bowel. The appendix is normal. Lymph nodes Retroperitoneal: Unremarkable. Pelvic: Unremarkable. Mesenteric: Unremarkable. Peritoneum: A small amount of free fluid is seen in the lower abdomen. Vessels: Unremarkable. Abdominal wall: Unremarkable. Bones: Unremarkable. IMPRESSION: There is gallbladder wall thickening and pericholecystic fluid stranding. Findings are suggestive of acute cholecystitis, however correlation with gallbladder ultrasound is recommended. If further evaluation is desired, a nuclear medicine HIDA scan can be performed. ACT 112: Negative or not required by law. Electronically signed by: Tawanda Long M.D. 07/16/2022 9:11 AM Gallbladder Ultrasound 07/16/22 23:28 ULTRASOUND RIGHT UPPER QUADRANT ABDOMEN CLINICAL HISTORY: Right upper quadrant abdominal pain. COMPARISON STUDY: No priors. TECHNIQUE: Real-time, grayscale, and color flow sonography of the right upper quadrant of the abdomen was performed. Images are reviewed in the transverse and longitudinal planes. FINDINGS: Liver: The liver is enlarged and demonstrates heterogeneously increased echotexture indicating steatosis. There is no intrahepatic biliary ductal dilatation. The main portal vein is patent. Gallbladder: The gallbladder is distended and appears mildly thick walled measuring up to 4 mm. Calcifications in the fundal region may represent gallstones versus polyps. No pericholecystic fluid is seen. A sonographic Murp hy's sign is reportedly absent. The common bile duct measures up to 0.3 cm in diameter. Pancreas: Visualized portions of the pancreatic head and body are normal in appearance. Right kidney: Survey images of the right kidney demonstrate normal size and echotexture. There is no hydronephrosis. A 3.6 cm cyst is incidentally noted. Ascites: None. IMPRESSION: 1. The gallbladder is distended an the wall appears mildly thickened. Calcifications within the fundal region are nonmobile and may represent gallstones versus polyps. There is no pericholecystic fluid and a sonographic Walden's sign is reportedly absent. There is no definitive sonographic evidence for acute cholecystitis at this time. If there is strong clinical/laboratory concern for acute cholecystitis a nuclear hepatobiliary scan should be obtained. 2. There is no intra or extrahepatic biliary ductal dilatation. 3. Hepatomegaly and hepatic steatosis. ACT 112: Negative or not required by law. Electronically signed by: Jerel Ovalle M.D. 07/16/2022 7:29 AM Hospital Course (1) Acute cholecystitis: Patient presented with abdominal pain and found to have acute cholecystitis on imaging. Status post laparoscopic cholecystectomy on 07/17/2022. Found to have gangrenous cholecystitis. Drain was placed and will be removed on day of discharge. Received IV Zosyn, will transition to Augmentin at discharge to complete a 7-day course of antibiotics. Tolerating diet Follow-up with general surgery Total Time Total Time Spent Total Time Spent (In Minutes): 35 Discharge Plan Discharge Items Patient Disposition: Home - Self-Care Reason For Visit: Abdominal Pain Discharge Diagnosis: Acute Cholecystitis (infected gallbladder) Activity: Per Instructions section Non-emergency contact: Primary Care Provider and Surgeon Call non-emergency contact if: you have any medication questions, your symptoms worsen, your pain is not controlled, you have a fever, your wound has increased redness and your wound has increased drainage Follow-up/Referrals: Ashish Huang MD [Physician] - 08/02/22 1:15 pm Chalo Ramos MD [Primary Care Provider] - 07/26/22 11:20 am (Date & Time 07/26/2022 11:20 AM Provider [facility] ) Diet: Regular Addtl Attending Provider Instructions: You came to the hospital for evaluation of abdominal pain and were found to have acute cholecystitis (gallbladder infection). You had your gallbladder removed on 07/17. Please refer to discharge instructions from general surgery. You were treated with IV antibiotics and will be discharged on Augmentin -- take 1 pill twice daily for the next 4 days. It was a pleasure taking care of you. If you need to reach a member of the [facility] hospitalist team at [facility], please call [phone]. JELENA Taveras Panel Maker Provider Instructions: Post-Surgical ~Discharge Instructions Activity Recommendations: - lifting limitation: (20 pounds for 3-4 weeks), - exercise/sex/sports limit: (nonstrenuous for 2 weeks), - driving or machine use limit: (none for 1 week or until pain free), - Shower/bathe limit: (may shower) Diet: - Resume previous diet SPECIAL CARE INSTRUCTIONS: - May shower. Let water run over area and pat dry. - Keep dressing over prior drain site and change as needed and daily to keep clean and dry. - Leave steri strips on for one week and then remove. - Call the surgeon's office with any questions or concerns - - (ex. temperature higher than 101 degrees F, excessive bleeding or pain). MEDICATIONS: - Resume previous medications unless instructed otherwise by your surgeon. - May take extra strength Tylenol and Ibuprofen as needed for mild to moderate pain -650 mg Tylenol every 6 hours as needed - Ibuprofen 600 mg every 6 hours as needed (take with food) - Percocet 1 every 6 hours, as needed for moderate to severe pain - Take antibiotics as prescribed for entire course. FOLLOW UP VISIT: - If not already scheduled, please call the office to schedule a one- two week follow-up appointment. Office number Pending Studies at Discharge: Yes (gallbladder pathology, will be reviewed at postop visit) Stand-Alone Forms: My [facility], Pain - Opioid Pain Management, Work/School Release, Smoking Cessation Medications and DC Order Prescriptions: New oxycodone-acetaminophen 5-325 mg tablet 1 tab PO Q6H PRN (Reason: pain) Qty: 5 0RF amoxicillin-pot clavulanate 875-125 mg tablet 1 tab PO BID 4 Days Qty: 8 0RF Continued multivitamin Tablet 1 tab PO DAILY fexofenadine-pseudoephedrine [Nelia-D 12 Hour] 60-120 mg Tablet Extended Release 12 Hr 1 tab PO DAILY potassium gluconate 595 mg (99 mg) Tablet 0 mg PO DAILY Rx Instructions: PT UNSURE OF STRENGTH Discharge Orders: Discharge Order (Routine); Ordered 07/19/22 Ordered By: Pennie Ac/Other Patient Handouts: Low-Fat Cooking Tips, Cholecystectomy Admission Data Admit Date/Time: 07/16/22 04:56 Attending Provider: Anders Fisher Admit Provider: Jeff Parker Primary Care Provider: Chalo Ramos Other Providers: Jeff Parker ; Yvonne Evans ; Vishal Barrera ; Jose Daniel Porter ; Umu Lehman ; Kirsten Grady ; Rahul Greenberg ; Ashish Huang ; Maryam Cortez ; Teressa Gutierrez ; Hal Loza Jr ; Adi Toribio ; Geremias Berg ; Genna Francis Other Interventions: Discharge Summary Assessment (RN) Last Done: 07/19/22 12:16 Supervising Physician Co-Signing Physician Notes Attending Addendum: The patient was seen and examined in Medical floor. He is s/p laparoscopic cholecystectomy. Minimal abdominal discomfort but denies any other symptoms On examination Remains hemodynamically stable Chest is clear Abdomen mildly distended, mildly tender with normal bowel sound Heart-S1-S2, regular LEGAL ADVISOR-alert, awake and oriented x3 His labs and imaging studies reviewed S/p laparoscopic cholecystectomy and remains medically stable Agree with assessment and plan as outlined above by Pennie Fisher
--- NOTE | 2022-07-22 13:27 | Coding Query ---
CODING QUERY To promote full compliance with coding requirements relating to patient care, provider participation is requested in all cases of bezel cutter uncertainty. Please assist us with the question(s) below: Coding Question(s): The Operative Report documents, "The cystic duct itself was inflamed and very friable. In mobilizing it, there was a small hole made in it, but because of how friable the duct was, I elected not to proceed with a cholangiogram with a low suspicion of common bile duct stones. Therefore, three clips were placed proximal to the cystic duct and one distally, and the cystic duct was then transected". Please specify below, to clarify the small hole made in the cystic duct: ( ) small hole made in the cystic duct is a Complication of accidental puncture or laceration during the procedure ( ) small hole made in the cystic duct is Other Complication of procedure. Please Specify ( ) small hole made in the cystic duct is an injury to the cystic duct but Not a Complication of the procedure ( x ) small hole made in the cystic duct is Not and injury and Not a Complication and is not significant ( ) small hole made in the cystic duct is Other: Please Specify Physician's Response(s): Thank you Torie Holland Principal Diagnosis: "that condition established after study, to be chiefly responsible for occasioning the admission of the patient to the hospital for care." Co-Existing Principal Diagnosis: "when two or more diagnoses equally meet the criteria for principal diagnosis as determined by the circumstances of admission, diagnostic work up, and/or therapy provided, and the Alphabetic Index, Tabular List, or another coding guideline does not provide sequencing direction, any one of the diagnoses may be sequenced first." "When the physician has documented what appears to be a current diagnosis in the body of the record, but has not included the diagnosis in the final diagnostic statement, the physician should be asked whether the diagnosis should be added." (Source Coding Clinic 2 QTR90. p3-4) LISA
== END 2022-07-19 13:42 | disposition home or self-care (01) | DRG 419 ==
LOC: ED 22:24 → EDINP 07-16 04:56 → 3E 07-16 07:24